=== PATIENT | male | born 1960 | race Caucasian/White ===

== ENCOUNTER 2019-09-14 20:49 | Inpatient (IN) | payer MEDICARE, SELFPAY ==
[2019-09-14 21:03] VITALS: BMI 23.7
[2019-09-14 21:09] VITALS: BP 171/109; PULSE 120; RESP 18; O2SAT 95
--- NOTE | 2019-09-14 21:12 | ED_ITS ---
Entered by Chanel Hanson, acting as scribe for Sep 14, 2019 20:49 HPI - Psych General: Chief Complaint: Psychiatric Symptoms Stated Complaint: AMS Time Seen by Provider: 09/14/19 21:07 Source: patient Mode of arrival: EMS Limitations: no limitations History of Present Illness: HPI Narrative: 59 yo Male presents to ED with complaint of psychiatric symptoms. Pt states that he would like to talk to a automatic pinsetter mechanic because it is his rights. Pt states that he has chest pain and his knuckels are chapped again. Pt states that he has trouble breathing but it doesn't matter because he has been in pain forever. Pt states that he has chronic pain that he was dealing with with Dr. Reveles. Pt states that he would rather speak to a automatic pinsetter mechanic before he says anything. MD complaint: other Relieving factors: none Exacerbating factors: none Review of Systems General: Reports: 10 or more systems reviewed and unremarkable except in HPI and below Const: Denies: fever, chills or body aches Eyes: Denies: change in vision, blurry vision or blind spots ENMT: Denies: throat pain, enlarged tonsils, painful swallowing, hoarseness, mouth pain or swelling of lips/tongue Card: Reports: chest pain; Denies: palpitations, irregular heart rhythm, edema or swelling of feet/ankles Resp: Denies: shortness of breath, productive cough or non-productive cough GI: Denies: abdominal pain, nausea or vomiting : Denies: flank pain, painful urination, urinary frequency, urinary urgency or urinary hesitancy Musc: Reports: back pain (chronic); Denies: neck pain, extremity pain, extremity swelling or joint pain Skin/Breast: Denies: rash, itching or redness Neuro: Denies: headache, numbness in extremities or weakness in extremities Endo: Denies: excessive urination, excessive thirst or tired all the time PFSH ED PFSH: Statuses (acute, chronic, etc) shown below reflect problem list status as previously entered and may not be historically accurate Social History (Updated 09/14/19 @ 21:23 by Chanel Hanson) Smoking and tobacco status: current every day smoker Alcohol intake: current Substance/Drug Use: current Substance/Drug use type: Marijuana Physical Exam Const: COMMON NORMALS: no apparent distress, average body habitus, oriented x3, no limitations, healthy appearing, alert and well nourished HENMT: COMMON NORMALS: normocephalic, head/scalp atraumatic and moist oral mucous membranes HEAD & SCALP: normocephalic and atraumatic Eye: COMMON NORMALS: PERRL, EOMs intact bilaterally, conjunctivae normal and no scleral icterus CONJUNCTIVA: Yes conjunctivae normal PUPIL: Yes PERRL Neck/C-Spine: COMMON NORMALS: full ROM, supple, no meningeal signs, no JVD and no carotid bruits Chest: COMMONS NORMALS: inspection of chest normal and palpation of chest normal Resp: COMMON NORMALS: normal respiratory effort, no retractions, no use of accessory muscles, clear to auscultation bilaterally and percussion normal AUSCULTATION: clear to auscultation bilaterally PERCUSSION: percussion normal Cardio: COMMON NORMALS: no JVD, regular rate, regular rhythm, S1 normal heart sound, S2 normal heart sound, no gallops, no clicks, no murmurs, no rub and peripheral pulses 2+ throughout RATE: regular rate RHYTHM: regular rhythm HEART SOUNDS: S1 normal and S2 normal PERIPHERAL PULSES: pulses 2+ throughout GI: COMMON NORMALS: normal to inspection, nondistended, normoactive bowel sounds, soft to palpation, non-tender, no hepatosplenomegaly, no masses and no bruits PALPATION: Yes soft and Yes no hepatosplenomegaly : COMMON NORMALS: Yes no CVA tenderness BLADDER/KIDNEY EXAM: Yes no CVA tenderness Back/Pelvis: COMMON NORMALS: no CVA tenderness Extremity: COMMON NORMALS: normal to inspection, full ROM, normal capillary refill, no calf tenderness and no pedal edema Neuro: COMMON NORMALS: oriented x3 SENSORIUM/ORIENTATION: Yes alert MENINGEAL SIGNS: Yes no meningeal signs Skin: COMMON NORMALS: no rashes or lesions noted, no wounds, skin turgor normal, no jaundice, no petechiae and no mottling GENERAL SKIN EXAM: no rashes or lesions noted and turgor normal MDM - Psych MDM Narrative: Medical decision making narrative: Patient with symptoms of acute psychosis. He is medically cleared and is admitted to the neuropsychiatric unit for further evaluation and management. Lab Data: Labs: Lab Results 09/14/19 09/14/19 09/14/19 Range/Units 21:48 21:48 22:45 WBC 12.5 H (4.0-10.0) 10^3/ uL RBC 4.64 (4.1-5.3) 10^6/u L Hgb 13.1 (11.7-16.6) g/dL Hct 40.2 L (42.0-52.0) % MCV 86.6 (80-94) fL MCH 28.2 (28.0-34.0) pg MCHC 32.6 (30.0-36.0) g/dL RDW 14.9 (12.1-15.1) % Plt Count 570 H (130-400) 10^3/c mm MPV 9.0 (7.4-10.4) fL Neut % (Auto) 78.9 % Lymph % (Auto) 12.2 % Obion % (Auto) 8.4 % Eos % (Auto) 0.0 % Baso % (Auto) 0.2 % Neut # (Auto) 9.8 H (1.8-7.7) 10^3/u L Lymph # (Auto) 1.5 (0.8-4.8) 10^3/u L Obion # (Auto) 1.1 H (0.2-0.9) 10^3/u L Eos # (Auto) 0.0 (0.0-0.8) 10^3/u L Baso # (Auto) 0.0 (0.0-0.1) 10^3/u L Nucleated RBC % (a uto) 0 % Nucleated RBCs # 0.0 /100WBC Sodium 141 (136-145) mmol/L Potassium 3.2 L (3.5-5.1) mmol/L Chloride 102 (98-107) mmol/L Carbon Dioxide 24 (22-29) mmol/L Anion Gap 18.2 (5-19) BUN 13 (6-20) mg/dL Creatinine 1.0 (0.7-1.2) mg/dL GFR Calculation 76.5 L (90-130) mL/min Glucose 119 H (74-109) mg/dL Calcium 10.2 H (8.6-10.0) mg/Dl Total Bilirubin 0.4 (0.15-1.2) mg/dL AST 45 H (0-40) U/L ALT 17 (0-41) U/L Alkaline Phosphata se 131 H (40-130) IU/L Total Protein 7.6 (6.6-8.7) g/dL Albumin 4.7 (3.5-5.2) g/dL Globulin 2.9 (1.3-4.6) g/dL TSH 1.97 (0.27-4.20) uIU/ mL Urine Color (Yellow) Urine Appearance (CLEAR) Urine pH (5-7) Ur Specific Gravit y (1.005-1.030) Urine Protein (Negative) Urine Glucose (UA) (Normal) Urine Ketones (Negative) Urine Occult Blood (Negative) Urine Nitrate (Negative) Urine Bilirubin (NEGATIVE) Urine Urobilinogen (Negative) mg/dL Ur Leukocyte Chinyere ase (Negative) Urine RBC (0-2) /hpf Urine WBC (0-5) /hpf Ur Squamous Epith Cells (0-5) Urine Bacteria (NONE) Hyaline Casts Coarse Granular Ca sts /lpf Urine Mucus Salicylates < 0.3 L (3-10) mg/dL Urine Opiates Scre en Positve (Negative) ng/mL Acetaminophen < 5.0 L (10-30) ug/mL Ur Barbiturates Sc reen Negative (Negative) ng/mL Ur Phencyclidine S crn Negative (Negative) ng/mL Ur Amphetamines Sc reen Negative (Negative) ng/mL U Benzodiazepines Scrn Positive H (Negative) ng/mL Urine Cocaine Scre en Negative (Negative) ng/mL U Marijuana (THC) Screen Positive H (Negative) ng/mL Ethyl Alcohol < 10 (0-10) mg/dL 09/14/19 Range/Units 22:45 WBC (4.0-10.0) 10^3/ uL RBC (4.1-5.3) 10^6/u L Hgb (11.7-16.6) g/dL Hct (42.0-52.0) % MCV (80-94) fL MCH (28.0-34.0) pg MCHC (30.0-36.0) g/dL RDW (12.1-15.1) % Plt Count (130-400) 10^3/c mm MPV (7.4-10.4) fL Neut % (Auto) % Lymph % (Auto) % Obion % (Auto) % Eos % (Auto) % Baso % (Auto) % Neut # (Auto) (1.8-7.7) 10^3/u L Lymph # (Auto) (0.8-4.8) 10^3/u L Obion # (Auto) (0.2-0.9) 10^3/u L Eos # (Auto) (0.0-0.8) 10^3/u L Baso # (Auto) (0.0-0.1) 10^3/u L Nucleated RBC % (a uto) % Nucleated RBCs # /100WBC Sodium (136-145) mmol/L Potassium (3.5-5.1) mmol/L Chloride (98-107) mmol/L Carbon Dioxide (22-29) mmol/L Anion Gap (5-19) BUN (6-20) mg/dL Creatinine (0.7-1.2) mg/dL GFR Calculation (90-130) mL/min Glucose (74-109) mg/dL Calcium (8.6-10.0) mg/Dl Total Bilirubin (0.15-1.2) mg/dL AST (0-40) U/L ALT (0-41) U/L Alkaline Phosphata se (40-130) IU/L Total Protein (6.6-8.7) g/dL Albumin (3.5-5.2) g/dL Globulin (1.3-4.6) g/dL TSH (0.27-4.20) uIU/ mL Urine Color Yellow (Yellow) Urine Appearance Cloudy (CLEAR) Urine pH 5 (5-7) Ur Specific Gravit y 1.025 (1.005-1.030) Urine Protein 1+ H (Negative) Urine Glucose (UA) Norm (Normal) Urine Ketones 1+ H (Negative) Urine Occult Blood 2+ H (Negative) Urine Nitrate Negative (Negative) Urine Bilirubin 1+ H (NEGATIVE) Urine Urobilinogen 1 H (Negative) mg/dL Ur Leukocyte Chinyere ase 2+ H (Negative) Urine RBC 0-4 H (0-2) /hpf Urine WBC 15-25 H (0-5) /hpf Ur Squamous Epith Cells None (0-5) Urine Bacteria 1+ H (NONE) Hyaline Casts 5-10 H Coarse Granular Ca sts 0-4 H /lpf Urine Mucus 2+ Salicylates (3-10) mg/dL Urine Opiates Scre en (Negative) ng/mL Acetaminophen (10-30) ug/mL Ur Barbiturates Sc reen (Negative) ng/mL Ur Phencyclidine S crn (Negative) ng/mL Ur Amphetamines Sc reen (Negative) ng/mL U Benzodiazepines Scrn (Negative) ng/mL Urine Cocaine Scre en (Negative) ng/mL U Marijuana (THC) Screen (Negative) ng/mL Ethyl Alcohol (0-10) mg/dL Discharge Plan Discharge Patient Disposition: Admitted As Inpatient Clinical Impression: Acute psychosis Condition: Stable Referrals: Magdalena Reveles DO [Primary Care Provider] - Coding Level of Care Code ED Hearing Health Technician for Chg Fwd Exam Problem Focused The documentation recorded by the Margie gomez Carmen, accurately reflects the service I personally performed and the decisions made by me, Cynthia Cole MD, [place] Sep 14, 2019 20:49
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
[2019-09-14 22:10] LABS: Basophils % 0.2 %; Hematocrit 40.2 % (42.0-52.0); Hemoglobin 13.1 g/dL (11.7-16.6); Lymphocytes # 1.5 10^3/uL (0.8-4.8); Lymphocytes % 12.2 %; Mean Corpuscular HGB Conc 32.6 g/dL (30.0-36.0); Mean Corpuscular Hemoglobin 28.2 pg (28.0-34.0); Mean Corpuscular Volume 86.6 fL (80-94); Monocytes # 1.1 10^3/uL (0.2-0.9); Monocytes % 8.4 %; Neutrophils # 9.8 10^3/uL (1.8-7.7); Neutrophils % 78.9 %; Nucleated Red Blood Cells % 0 %; Platelet Count 570 10^3/cmm (130-400); Red Blood Count 4.64 10^6/uL (4.1-5.3); Red Cell Distribution Width 14.9 % (12.1-15.1); White Blood Count 12.5 10^3/uL (4.0-10.0)
[2019-09-14 22:41] LABS: Alanine Aminotransferase 17 U/L (0-41); Albumin Level 4.7 g/dL (3.5-5.2); Alkaline Phosphatase 131 IU/L (40-130); Anion Gap 18.2 (5-19); Aspartate Amino Transferase 45 U/L (0-40); Blood Urea Nitrogen 13 mg/dL (6-20); Calcium 10.2 mg/Dl (8.6-10.0); Carbon Dioxide 24 mmol/L (22-29); Chloride 102 mmol/L (98-107); Globulin 2.9 g/dL (1.3-4.6); Glomerular Filtration Rate 76.5 mL/min (90-130); Glucose 119 mg/dL (74-109); Potassium 3.2 mmol/L (3.5-5.1); Sodium 141 mmol/L (136-145); Thyroid Stimulating Hormone 1.97 uIU/mL (0.27-4.20); Total Bilirubin 0.4 mg/dL (0.15-1.2); Total Protein 7.6 g/dL (6.6-8.7)
[2019-09-14] MEDS: HYDROcodone-acetaminophen 5-325 mg Tablet 1 TAB PO (22:52)
[2019-09-14 22:53] LABS: Acetaminophen < 5.0 ug/mL (10-30); Alcohol Level < 10 mg/dL (0-10); Salicylate < 0.3 mg/dL (3-10)
[2019-09-14 22:55] VITALS: BP 178/117; PULSE 99; RESP 16; O2SAT 98
[2019-09-14 23:01] LABS: Blood Urine 2+ (Negative); Glucose Urine UA Norm (Normal); Ketones Urine 1+ (Negative); Protein Urine 1+ (Negative); Specific Gravity, Urine 1.025 (1.005-1.030); Urine Appearance Cloudy (CLEAR); Urine Color Yellow (Yellow); pH Urine 5 (5-7)
[2019-09-14 23:02] LABS: Add Urine Culture? Yes; Add Urine Microscopic? YES; Bacteria Urine 1+; Bilirubin Urine 1+ (NEGATIVE); Coarse Granular Casts Urine 0-4 /lpf; Leukocyte Esterase Urine 2+ (Negative); Mucus Urine 2+; Nitrate Urine Negative (Negative); RBC Urine 0-4 /hpf (0-2); Urobilinogen Urine 1 mg/dL (Negative); WBC Urine 15-25 /hpf (0-5)
--- NOTE | 2019-09-14 23:09 | PC.NURSE ---
Patient has severe dental caries and is asking for assistance. Patient reports that he has attempted to follow up with dentistry but has not been successful.
[2019-09-14 23:17] LABS: Amphetamines Screen Urine Negative (Negative); Barbiturates Screen Urine Negative (Negative); Benzodiazepines Screen Urine Positive (Negative); Cocaine Screen Urine Negative (Negative); PCP Screen Urine Negative (Negative); THC Screen Urine Positive (Negative)
[2019-09-14] MEDS: metoprolol tartrate 50 mg Tablet PO (23:35)
[2019-09-14 23:51] VITALS: BP 165/80; PULSE 99; RESP 16; O2SAT 98
[2019-09-15 00:58] VITALS: BP 170/108; PULSE 78; RESP 16; TEMP 36.8; O2SAT 99
[2019-09-15 05:27] VITALS: BP 193/92; PULSE 90; RESP 17; TEMP 36.8; O2SAT 97
--- NOTE | 2019-09-15 07:54 | PM.NHP ---
Providers/Chief Complaint Admitting Physician: Vel Cintron MD Primary Care Provider: Magdalena Reveles DO Chief Complaint: ACUTE PSYCHOSIS, 96 HR HOLD HPI NPU History of Present Illness Jose Alfredo Page is a 59 year old male Chief complaint: We are at [facility] in [facility]. We are in an office building. But not 1 of the Good ones. We are in the 1 with the [employer].. I'm 70 years old And I have a 5-year-old daughter. We had her when I was 26. History of present illness: Jose Alfredo Page is a 59 year old male. At seems to be true. Otherwise, is not real clear how he wound up on a psychiatric unit. Emergency room note displayed below. He has no prior psychiatric history. He does not know these in the psychiatric unit. Begin figure why he would be a psychiatric unit. He admits that he smokes marijuana but says that doesn't seem to be a problem as he been doing it every day since he was 6 years old. The patient is not a reliable source of information. It is noted that he has an untreated urinary tract infection and his white count is elevated. His urine drug screen is positive for marijuana and benzodiazepines. Laboratory Tests 09/14/19 09/14/19 09/14/19 21:48 21:48 22:45 WBC 12.5 H Plt Count 570 H Urine Bilirubin Urine Urobilinogen Ur Leukocyte Esterase Urine RBC Urine WBC Urine Bacteria Urine Opiates Screen Positve Ur Barbiturates Screen Negative Ur Phencyclidine Scrn Negative Ur Amphetamines Screen Negative U Benzodiazepines Scrn Positive H Urine Cocaine Screen Negative U Marijuana (THC) Screen Positive H Ethyl Alcohol < 10 09/14/19 22:45 WBC Plt Count Urine Bilirubin 1+ H Urine Urobilinogen 1 H Ur Leukocyte Esterase 2+ H Urine RBC 0-4 H Urine WBC 15-25 H Urine Bacteria 1+ H Urine Opiates Screen Ur Barbiturates Screen Ur Phencyclidine Scrn Ur Amphetamines Screen U Benzodiazepines Scrn Urine Cocaine Screen U Marijuana (THC) Screen Ethyl Alcohol He has no complaints today. He apologized for losing his temper at me this morning. It is 1530 and this is the first time that I met him. He makes no requests. 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 We cannot confirm any of that. At this point we have many more questions and redo answers. However even without corroborating evidence, it is clear that he is oriented only to self and his memory is globally impaired. ER physician note: HPI Narrative: 59 yo Male presents to ED with complaint of psychiatric symptoms. Pt states that he would like to talk to a residential electrician because it is his rights. Pt states that he has chest pain and his knuckels are chapped again. Pt states that he has trouble breathing but it doesn't matter because he has been in pain forever. Pt states that he has chronic pain that he was dealing with with Dr. Reveles. Pt states that he would rather speak to a residential electrician before he says anything. Mental health history:There is no history of mental health intervention his [facility] chart extending back several years. Patient states he has never seen a psychiatrist or been on a psychiatric unit. 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 Gives that appearance in that general demeanor. He references the quite a bit but is unable to state whether he was in the . At various times he said that he gruff, [place], [place]. Legal history:There is no [place] public record of arrest for Felonies or incarcerations. Past medical history:Resiliency record is back to 2006. History of psychiatric intervention of any kind. He has had considerable cardiovascular difficulties and he says that he has had a stroke. However his only hospitalization was for an appendectomy In 2015.This should be noted that I'm unable to find documentation for the vast number of medical presentations in the old electronic medical record. Mental Status Exam: Patient is a tall lanky man with an unshaven sun and disheveled appearance though with good hygiene. He appears older than stated age. He is ambulatory and there are no gross neurological deficits. There are no focal neurological deficits consistent with a recent stroke. I contact is good. There is no attention to internal stimuli. He is believed to be a reliable informant to the best of his ability. Appearance: hygiene is fair; no gross neurological deficits., gait is unremarkable; AIMS=0 Speech: Speech is of normal rate and rhythm and easily understood. Thought processes: Thought processes are Disorganized. Judgment is not adequate for safety. Psychotic processes: There is no indication of guarding or paranoia. There is no attention to the internal stimuli. Auditory and visual hallucinations are denied. Judgment: Insight is Poor. Problem solving skills are Notadequate for safety. Orientation: The patient is oriented to Himself only. Memory: His description of personal memory is so bizarreness to be unable to corroborate it against available evidence but it appears that his self-report of memory is completely invalid. Attention: The patient is alert and interpersonally engaged. Language: Verbalizations are coherent. Fund of knowledge: Fund of knowledge is Poor Affect/Mood: Affect is consistent with a Euthymic mood. He denied suicidal ideation Affective range appropriate. Psychosis: Perception is severely impaired reality testing is negligible given his degree of disorientation and lack of awareness. Diagnoses:Delirium?etiology unknown Urinary tract infection Recent marijuana use with known contaminated marijuana leading to delirium in the community. Assessment: Treatment plan: Due to the psychiatric conditions and treatment listed in the Assessment and Plan - the patient requires continued hospitalization. Will provide a safe and therapeutic environment for patient.. Will continue inpatient treatment to allow for medication adjustment and monitoring. Will continue q15 min safety checks. Will continue current medications and monitor for medication side effects. Bactrim DS has been initiated for urinary tract infection.Routine CT of the head will be requested. Monitor patient's mood, sleep, appetite, and behavior closely. Encourage patient to participate in individual and group therapeutic sessions on the mc. Estimated length of stay 5 days The expected benefits and potential side effects of patient's psychiatric medications were discussed with the patient. The patient understands and consents to treatment.CRITERIA FOR DISCHARGE: stable on medications and no longer an Imminent risk to self or others. Meds NPU Allergies Allergy/AdvReac Type Severity Reaction Status Date / Time No Known Allergies Allergy Verified 09/14/19 21:08 PFSH NPU PFSH: Statuses (acute, chronic, etc) shown below reflect problem list status as previously entered and may not be historically accurate Social History (Updated 09/14/19 @ 21:23 by Chanel Hanson) Smoking and tobacco status: current every day smoker Alcohol intake: current Substance/Drug Use: current Substance/Drug use type: Marijuana Vitals/I&O/Wt Last Vital Signs Temp 98.3 F 09/15/19 05:27 Pulse 90 09/15/19 05:27 Resp 17 09/15/19 05:27 BP 193/92 01/23/20 05:27 Pulse Ox 97 09/15/19 05:27 Weight last 48 hrs Weight 81.647 kg Data NPU : 09/14/19 21:48 09/14/19 21:48 Involuntary Hold Information 96 Hour Hold: 96 Hour Involuntary Admission: Yes 96 Hour Hold Ending Date: 09/20/19 96 Hour Hold Ending Time: 23:26 Attestations NPU Medical Necessity Statement*: Pacer remain in the hospital another 5 nights for the completion of an is 96 hour involuntary commitment. 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
[2019-09-15] MEDS: sulfamethoxazole-trimeth DS 160-800 mg Tablet 1 TAB PO ×2 (10:45→17:42)
[2019-09-15] MEDS: hyDROXYzine 25 mg Capsule 50 MG PO (10:45)
[2019-09-15 14:00] VITALS: BP 163/88; PULSE 99; RESP 20; TEMP 37.2; O2SAT 100
[2019-09-15] MEDS: OLANZapine 5 mg TABLET PO (21:25)
[2019-09-15] MEDS: trazodone 50 mg Tablet PO (21:27)
[2019-09-15 21:31] VITALS: BP 166/95; PULSE 98; RESP 21; TEMP 36.8; O2SAT 98
[2019-09-16] MEDS: LORazepam 1 mg Tablet PO (01:16)
--- NOTE | 2019-09-16 01:23 | PC.NURSE ---
At approximately 0104, patient had been at the nurses station. Appeared to be mumbling and then went down to his knees, which appeared to be on purpose, then pt. rolled over on his back on the floor out by the nurses station. Video was reviewed and it was intentional. Patient had a breakdown and was tearful, remembering events from his past. Patient spoke of his and past events and was eventually able to calm down after talking with staff. Patient was agreeable to take prn ativan 1 mg Po at 0116, and tolerated well. Vital signs were 145/87. Patient was assisted to his room and is currently resting in bed with eyes closed. Will re-assess effectiveness of PRN medication and continue to monitor.
--- NOTE | 2019-09-16 02:00 | PC.NURSE ---
Patient is in bed, but remains awake. Patient is not tearful at this time and appears a little calmer at this time.
[2019-09-16] MEDS: OLANZapine ODT 5 MG TABLET PO (04:46)
[2019-09-16] MEDS: haloperidol inj 5 mg/mL INJ 1 mL IM (04:53)
--- NOTE | 2019-09-16 04:56 | PC.NURSE ---
Addendum entered by Julian Birmingham LPN 09/16/19 05:41: PT CONTINUES TO BE HALLUCINATING AND AGITATED. AFTER SEVERAL ATTEMPTS TO VERBALLY REDIRECT PT; ADMINISTERED ATIVAN 2 MG IM. WILL CONTINUE TO MONITOR. Original Note: PRN HALDOL PT HALLUCINATING AND GETTING VERY AGITATED. PT WAS IN HIS ROOM TRYING TO PULL THE OUTLET COVER OFF THE WALL, PULLING UP HIS MATTRESS LOOKING FOR HIS SCREWDRIVER. HE THEN PROCEEDED TO TRY TO PULL HIS TEETH OUT. PT WAS GIVEN ZYPREXA ZYDIS BUT SPIT IT ON THE FLOOR. PT WAS THEN GIVEN HALDOL 5 MG IM. WILL MONITOR FOR MEDICATION EFFECTIVENESS.
[2019-09-16] MEDS: LORazepam 2 mg/mL INJ 1 mL IM (05:27)
--- NOTE | 2019-09-16 10:05 | PC.NURSE ---
PT NOTE: PATIENT UNABLE TO COMPREHEND TAKING MEDICATION (BACTRIM) THIS MORNING.
[2019-09-16 14:00] VITALS: BP 116/98; PULSE 99; RESP 19; TEMP 37; O2SAT 95
--- NOTE | 2019-09-16 15:26 | P.PN_ITS ---
Subjective NPU Subjective: Interval history: Patient continues to have a variety of minor complaints. Today he finally was complaining of pain and would like some relief with that. He points to various scars and sites of musculoskeletal trauma that he has had in the past. 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 He talked about his life history little bit as he did yesterday. He said that he her up in [facility]. He grew up in a good place where it was. He apparently did spend some time in psychiatric hospitals as a youth. He complained that he cannot focus his attention very well and his vision is such that he is seeing things that aren't there. He denies the presence of auditory and visual hallucinations but these things that he sees appear to be more like illusions. Mental Status Exam MSE Comments: Mental Status Exam: Patient is a tall lanky man with an unshaven sun and disheveled appearance though with good hygiene. He appears older than stated age. He is ambulatory and there are no gross neurological deficits. There are no focal neurological deficits consistent with a recent stroke. Eye contact is good. There is no attention to internal stimuli. He is believed to be a reliable informant to the best of his ability. Appearance: hygiene is fair; no gross neurological deficits., gait is unremarkable; AIMS=0 Speech: Speech is of normal rate and rhythm and easily understood. Thought processes: Thought processes are More organized than on admission but he continues to have difficulty focusing his attention long enough to maintain a train of thought.. Judgment is not adequate for safety But improved.. Psychotic processes: There is no indication of guarding or paranoia. There is no attention to the internal stimuli. Auditory and visual hallucinations are denied. Judgment: Insight is Improved. Problem solving skills are Not adequate for safety But improved over yesterday.. Orientation: The patient is oriented to Himself only. Memory: Long-term memories are more internally consistent. Attention: The patient is alert and interpersonally engaged. Language: Verbalizations are Difficult to follow and often demonstrate some flight of ideas noted significant that he is aware that he is not thinking taya chaz. Fund of knowledge: Fund of knowledge is Poor Affect/Mood: Affect is consistent with a Euthymic mood. He denied suicidal ideation Affective range appropriate. Psychosis: Perception is severely impaired reality testing is negligible given his degree of disorientation and lack of awareness. Diagnoses:Delirium?etiology unknown Urinary tract infection Recent marijuana use with known contaminated marijuana leading to delirium in the community. Assessment: Treatment plan: Due to the psychiatric conditions and treatment listed in the Assessment and Plan - the patient requires continued hospitalization. Will provide a safe and therapeutic environment for patient.. Will continue inpatient treatment to allow for medication adjustment and monitoring. Will continue q15 min safety checks. Will continue current medications and monitor for medication side effects. Bactrim DS has been initiated for urinary tract infection. Hospital day #3: The patient shows moderate improvement in mental status in that he has some awareness that he is not thinking clearly and that his problem solving and reality deficits appear to be more from his inability to focus attention and think in a linear fashion. His memory is more consistent and he shows some improvement in calculation which indicates improved problem solving skills. We have received his list of medications and will be restarting those of a modified form. Plan: Start oxycodone 10 mg 3 times a day rather than 30 mg 5 times daily that is listed on his record, Protonix 40 mg daily, Lipitor 40 mg daily, protriptyline will be replaced with doxepin 50 mg at bedtime. His lactulose and MiraLAX will not be restarted as those appear to be likely due to constipation from his high-dose of oxycodone it is not clear why he is taking doxycycline. Monitor patient's mood, sleep, appetite, and behavior closely. Encourage patient to participate in individual and group therapeutic sessions on the mc. Estimated length of stay 5 days The expected benefits and potential side effects of patient's psychiatric medications were discussed with the patient. The patient understands and consents to treatment.CRITERIA FOR DISCHARGE: stable on medications and no longer an Imminent risk to self or others. Vitals/I&O/Wt Last Vital Signs Temp 98.6 F 09/16/19 14:00 Pulse 99 09/16/19 14:00 Resp 19 H 09/16/19 14:00 BP 116/98 09/16/19 14:00 Pulse Ox 95 09/16/19 14:00 Weight last 48 hrs Weight 81.647 kg Data NPU : 09/14/19 21:48 09/14/19 21:48 Micro: Microbiology 09/14/19 22:45 Urine Culture - Preliminary Urine,Clean Catch Microbiology 09/14/19 22:45 Urine,Clean Catch Urine Culture - Preliminary Involuntary Hold Information 96 Hour Hold: 96 Hour Involuntary Admission: Yes 96 Hour Hold Ending Date: 09/20/19 96 Hour Hold Ending Time: 23:26 Attestations NPU Medical Necessity Statement*: Patient remains a hospital litter 3 nights until his mental status improves to where he is no longer an imminent risk to self or others. 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
[2019-09-16] MEDS: oxyCODONE 5 mg IR Tab/Cap PO (16:39)
[2019-09-16] MEDS: pantoprazole DR 40 mg Tablet PO (16:39)
[2019-09-16] MEDS: sulfamethoxazole-trimeth DS 160-800 mg Tablet 1 TAB PO (18:18)
[2019-09-16 18:19] VITALS: RESP 20
[2019-09-16] MEDS: oxyCODONE 10 mg ER (12 HR) Tablet PO (18:19)
[2019-09-16 21:03] VITALS: BP 145/96; PULSE 116; RESP 21; TEMP 37.2; O2SAT 95
[2019-09-16] MEDS: OLANZapine 5 mg TABLET PO (21:07)
[2019-09-16] MEDS: trazodone 50 mg Tablet PO (21:07)
[2019-09-16] MEDS: atorvastatin 40 mg Tablet PO (21:07)
[2019-09-16] MEDS: doxepin 50 mg Capsule PO (21:07)
--- NOTE | 2019-09-17 | PC.NURSE ---
Addendum entered by Julian Birmingham LPN 09/17/19 00:29: GEODON PT CONTINUED TO BECOME INCREASINGLY AGITATED AND CONFUSED. ADMINISTERED GEODON 20 MG IM. WILL MONITOR FOR MEDICATION EFFECTIVENESS. Original Note: BEHAVIOR PT HAS BEEN PACING UP AND DOWN THE HALLWAY. PT IS HARD TO REDIRECT AND GETTING VERY ARGUMENTATIVE. PT CONTINUES TO REQUEST COFFEE AND HITTING THE GLASS AT THE NURSES STATION. WILL CONTINUE TO MONITOR.
[2019-09-17] MEDS: ziprasidone 20 mg/mL SDV IM (00:28)
--- NOTE | 2019-09-17 02:51 | PC.NURSE ---
PRN ATIVAN/Haldol IM Patient continues to be uncooperative, walking halls, mumbling, overflowing sink, and came in leyva and put a wet hand towel with soap on the back of another patients neck, tried to take sitters water bottle that was sitting in the leyva. Will continue to monitor.
[2019-09-17] MEDS: haloperidol inj 5 mg/mL INJ 1 mL IM (02:59)
[2019-09-17] MEDS: LORazepam 2 mg/mL INJ 1 mL IM (03:00)
--- NOTE | 2019-09-17 03:01 | PC.NURSE ---
WILLIAM ATYAMILETH ATIVAN WOULD NOT SCAN IN OCT. MAKAYLA FROM PHARMACY REMOVED MEDICATION AND RE-ENTERED. MEDICATION STILL WOULD NOT SCAN, ATIVAN LOT - [id number] EXP- 03/24/[address] [facility] [id number] BAR CODE [id number] ATIVAN VERIFIED BY SECOND NURSE IKE CHARLES RN
--- NOTE | 2019-09-17 03:03 | PC.NURSE ---
Ativan would not scan Verified with Marisela Birmingham LPN that ativan would not scan, she spoke with pharmacy Pedro and he re-entered medication and it would still not scan.
[2019-09-17 05:58] VITALS: BP 126/77; PULSE 81; RESP 20; TEMP 36.5; O2SAT 97
--- NOTE | 2019-09-17 05:58 | PC.NURSE ---
FAll report Patient had been confused and went into hallway and was attempting to touch staff with a wet cloth. She was backing away from him and he raised the other hand toward her face and she blocked it. Patient then tripped over his foot and went to the ground with minimal impact to buttock area. Assisted off the floor and moved to a room with less stimulation and pt has remained calm and in bed since. supervisor machine setter, physician, security all notified. Green band and socks applied. Security, Apartment Leasing Agent and physician notified. Green band and socks applied. Patient resting in bed, no needs voiced.
[2019-09-17] MEDS: pantoprazole DR 40 mg Tablet PO (10:16)
[2019-09-17] MEDS: oxyCODONE 10 mg ER (12 HR) Tablet PO ×2 (10:16→17:27)
[2019-09-17] MEDS: sulfamethoxazole-trimeth DS 160-800 mg Tablet 1 TAB PO ×2 (10:16→17:27)
--- NOTE | 2019-09-17 11:43 | PM.NPN ---
Subjective NPU Subjective: Interval history: Patient States that he believes is between 1964 and 1979 but is not sure. He thinks it is February. He believes he is in [facility]. He perseverates on events as a child. When asked how old he was, he first said 14 and then he changed his mind is being 16. 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 He told me that the first thing you do we build a house is a build a foundation. Has no complaints. He does not recall not sleeping last night. Mental Status Exam MSE Comments: Mental Status Exam: Patient is a tall lanky man with an unshaven sun and disheveled appearance though with good hygiene. He appears older than stated age. He is ambulatory and there are no gross neurological deficits. There are no focal neurological deficits consistent with a recent stroke. Eye contact is good. There is no attention to internal stimuli. He is believed to be a reliable informant to the best of his ability. Appearance: hygiene is fair; no gross neurological deficits., gait is unremarkable; AIMS=0 Speech: Speech is of normal rate and rhythm and easily understood. Thought processes: Thought processes are More organized than on admission but he continues to have difficulty focusing his attention long enough to maintain a train of thought.. Judgment is not adequate for safety But improved.. Psychotic processes: There is no indication of guarding or paranoia. There is no attention to the internal stimuli. Auditory and visual hallucinations are denied. Judgment: Insight is Improved. Problem solving skills are Not adequate for safety But improved over yesterday.. Orientation: The patient is oriented to Himself only. Memory: Long-term memories are more internally consistent. Attention: The patient is alert and interpersonally engaged. Language: Verbalizations are Difficult to follow and often demonstrate some flight of ideas noted significant that he is aware that he is not thinking clearly. Fund of knowledge: Fund of knowledge is Poor Affect/Mood: Affect is consistent with a Euthymic mood. He denied suicidal ideation Affective range appropriate. Psychosis: Perception is severely impaired reality testing is negligible given his degree of disorientation and lack of awareness. Diagnoses:Delirium?etiology unknown Urinary tract infection Recent marijuana use with known contaminated marijuana leading to delirium in the community. Assessment: Treatment plan: Due to the psychiatric conditions and treatment listed in the Assessment and Plan - the patient requires continued hospitalization. Will provide a safe and therapeutic environment for patient.. Will continue inpatient treatment to allow for medication adjustment and monitoring. Will continue q15 min safety checks. Will continue current medications and monitor for medication side effects. Bactrim DS has been initiated for urinary tract infection. Hospital day #3: The patient shows moderate improvement in mental status in that he has some awareness that he is not thinking clearly and that his problem solving and reality deficits appear to be more from his inability to focus attention and think in a linear fashion. His memory is more consistent and he shows some improvement in calculation which indicates improved problem solving skills. We have received his list of medications and will be restarting those of a modified form. Plan: Start oxycodone 10 mg 3 times a day rather than 30 mg 5 times daily that is listed on his record, Protonix 40 mg daily, Lipitor 40 mg daily, protriptyline will be replaced with doxepin 50 mg at bedtime. His lactulose and MiraLAX will not be restarted as those appear to be likely due to constipation from his high-dose of oxycodone it is not clear why he is taking doxycycline. Hospital day #4: Patient was up all night last night and requires when necessary Geodon. It did not provide significant benefit in improving sleep was less agitated throughout the night. Plan: We'll request a head CT noted is not expected to show anything significant. Will start Valium 10 mg at bedtime along side the olanzapine and doxepin to try and establish regular diurnal cycle. Monitor patient's mood, sleep, appetite, and behavior closely. Encourage patient to participate in individual and group therapeutic sessions on the mc. Estimated length of stay 5 days The expected benefits and potential side effects of patient's psychiatric medications were discussed with the patient. The patient understands and consents to treatment.CRITERIA FOR DISCHARGE: stable on medications and no longer an Imminent risk to self or others. Cognition: Patient Appearance: Appears Older than Age Level of Consciousness: Alert and Follows Commands Patient Cognition Impaired: No Ability to Follow Directions: Good Patient Orientation (long list): Person and Birthday Comprehension Ability: Mild Impairment Hallucination Type: None Delusion Description: Not Present Thought Process: Confused and Disorganized Affect: Affect Description: [place] Depressive Symptoms: Insomnia Behavior: Patient Behavior: Appropriate Speech Pattern: Mumbled Vitals/I&O/Wt Last Vital Signs Temp 97.7 F 09/17/19 05:58 Pulse 81 09/17/19 05:58 Resp 20 H 09/17/19 05:58 BP 126/77 09/17/19 05:58 Pulse Ox 97 09/17/19 05:58 Data NPU : 09/14/19 21:48 09/14/19 21:48 Micro: Microbiology 09/14/19 22:45 Urine Culture - Preliminary Urine,Clean Catch Microbiology 09/14/19 22:45 Urine,Clean Catch Urine Culture - Preliminary Involuntary Hold Information 96 Hour Hold: 96 Hour Involuntary Admission: Yes 96 Hour Hold Ending Date: 09/20/19 96 Hour Hold Ending Time: 23:26 Attestations NPU Medical Necessity Statement*: Patient will remain in the hospital another 5 days until we can figure out why this man is delirious 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
--- NOTE | 2019-09-17 12:16 | CTR_ITS ---
PROCEDURE INFORMATION: Exam: CT Head Without Contrast Exam date and time: 09/17/2019 1:45 PM Age: 59 years old Clinical indication: Psychosis or psychotic disorder; Unspecified; Patient HX: 96 hour hold. Onset of psychosis; Additional info: New onset psychosis TECHNIQUE: Imaging protocol: Computed tomography of the head without contrast. Total DLP: 649.64 mGy-cm Radiation optimization: All CT scans at this facility use at least one of these dose optimization techniques: automated exposure control; mA and/or kV adjustment per patient size (includes targeted exams where dose is matched to clinical indication); or iterative reconstruction. COMPARISON: No relevant prior studies available. FINDINGS: Brain: Mild brain volume loss. There is no acute intracranial hemorrhage. No extra-axial fluid collection. No evidence of acute infarct. Dowell white differentiation is intact. There is no evidence of mass. There is no mass effect or midline shift. Ventricles: No ventriculomegaly. Bones/joints: No acute fracture. Sinuses: Unremarkable as visualized. No acute sinusitis. Mastoid air cells: No significant mastoid effusion. Soft tissues: Unremarkable as visualized. CT/CT head wo con* [id number] IMPRESSION: No evidence of acute intracranial abnormality. Radiation Dose CTDIVOL = (mGy): DLP = 649.64 (mGy-cm)
[2019-09-17 14:00] VITALS: BP 129/69; PULSE 85; RESP 18; TEMP 36.8; O2SAT 97
[2019-09-17] MEDS: acetaminophen 325 mg Tablet 650 MG PO (16:00)
[2019-09-17] MEDS: diazePAM 5 mg Tablet 10 MG PO (21:27)
[2019-09-17] MEDS: atorvastatin 40 mg Tablet PO (21:27)
[2019-09-17] MEDS: doxepin 50 mg Capsule PO (21:27)
[2019-09-17 21:39] VITALS: BP 156/92; PULSE 112; RESP 21; TEMP 37.1; O2SAT 97
[2019-09-18] MEDS: haloperidol inj 5 mg/mL INJ 1 mL IM (00:45)
[2019-09-18] MEDS: LORazepam 2 mg/mL INJ 1 mL IM (00:53)
--- NOTE | 2019-09-18 04:34 | PC.NURSE ---
0045 on 09/18/19 patient given Ativan 2 mg/Haldol 5mg IM for agitation. Will continue to monitor.
--- NOTE | 2019-09-18 04:49 | PC.NURSE ---
0053 09/18/19 Ativan 2 mg vial did not scan into MAR. Entered manually.
[2019-09-18 06:00] VITALS: BP 173/93; PULSE 100; RESP 20; TEMP 36.8; O2SAT 96
[2019-09-18] MEDS: oxyCODONE 10 mg ER (12 HR) Tablet PO ×2 (08:20→17:08)
[2019-09-18] MEDS: pantoprazole DR 40 mg Tablet PO (08:21)
[2019-09-18] MEDS: OLANZapine ODT 5 MG TABLET PO (08:21)
[2019-09-18] MEDS: sulfamethoxazole-trimeth DS 160-800 mg Tablet 1 TAB PO ×2 (08:21→17:08)
--- NOTE | 2019-09-18 08:21 | PC.NURSE ---
PT VOICES THAT HIS FRIEND SITTING BESIDE HIM IS ARGUING WITH HIM. HAS BEEN PACING IN THE [place] AND NOTED PT TALKING TO HIMSELF. SANDEEP ROMANO ADMINISTERED. WILL CONT TO MONITOR AND FOLLOW UP NEEDED.
--- NOTE | 2019-09-18 09:00 | PC.NURSE ---
PT CONTINUES TO BE PSYCHOTIC AND DELUSIONAL. DR OFF THE FLOOR AT PRESENT WILL MAKE HIM AWARE WHEN HE RETURNS.
[2019-09-18] MEDS: LORazepam 2 mg Tablet PO (09:54)
[2019-09-18] MEDS: haloperidol 5 mg Tablet PO (09:54)
--- NOTE | 2019-09-18 09:54 | PC.NURSE ---
DR RAMIREZ MADE AWARE THAT PT CONTINUES TO BE DELUSIONAL AND TALKING TO OTHERS THAT ARENT PRESENT. ONE TIME ORDER FOR ATIVAN 2 MG PO WITH HALDOL 5 MG PO. ADMINISTERED ORDERED. WILL CONT TO MONITOR AND FOLLOW UP NEEDED
--- NOTE | 2019-09-18 09:55 | PM.NPN ---
Subjective NPU Subjective: Interval history: Patient seems to have become less disoriented. He no longer believes he is in [facility], where he originated, but now recognizes he lives in [place] and can give me the street address and [place] where he resides. He is getting older; he thinks he is 22 years old. He is not agitated or assaultive but his thoughts appear to be racing and confused. Medications: Reviewed: Yes (Discussed his current pharmacotherapy with nursing staff. It would appear that he decrescendos to peaks of agitation, which sometimes require as needed pharmacologic intervention) Medication Review Details: I have asked the nursing staff to provide Haldol 5 mg IM with lorazepam 2 mg IM every 4 hours as needed to calm him down and to observe the response. This may not be the exact targeted pharmacotherapy that he needs. But it will help us refine our treatment. Mental Status Exam MSE Comments: The patient is mildly disheveled. He presents his stated age. Mood is clearly very anxious and confused. Affect is appropriate. He relates to the interviewer are very friendly and cooperative manner. His disorientation seems to be declining and that he now recognizes he is seen in [place]. He thinks he is older than he did yesterday, now 22. Thought processes are scattered and given to looseness of associations. I cannot discern true hallucinations or delusions. Cognitive functions are grossly impaired as regards orientation, capacity for reasoning, insight and judgment. I note that is a 96-hour hold well and on the but I sincerely doubt he will be anywhere close to the competency necessary to resume responsibility for his own wellbeing and we may well have to apply for a 21-day extension. Vitals/I&O/Wt Last Vital Signs Temp 98.2 F 09/18/19 06:00 Pulse 100 09/18/19 06:00 Resp 20 H 09/18/19 06:00 BP 173/93 09/18/19 06:00 Pulse Ox 96 09/18/19 06:00 Weight last 48 hrs Weight 167 lb 4 oz Physical Exam Narrative: EXAM NARRATIVE: On examination he appeared in good health and spirits. Vital signs as documented. Skin warm and dry and without overt rashes. Neck without JVD. Lungs clear. Heart exam notable for regular rhythm, normal sounds and absence of murmurs, rubs or gallops. Abdomen unremarkable and without evidence of organomegaly, masses, or abdominal aortic enlargement. Extremities nonedematous. Data NPU : 09/14/19 21:48 09/14/19 21:48 Micro: Microbiology 09/14/19 22:45 Urine Culture - Final Urine,Clean Catch Microbiology 09/14/19 22:45 Urine,Clean Catch Urine Culture - Final A&P Assessment and plan (1) Acute psychosis: The patient's psychotic symptoms are waning. We are adjusting pharmacotherapy to establish dominance over them. We will closely monitor his progress. Status: Acute Code(s): F23 - Brief psychotic disorder Involuntary Hold Information 96 Hour Hold: 96 Hour Involuntary Admission: Yes 96 Hour Hold Ending Date: 09/20/19 96 Hour Hold Ending Time: 23:26 Attestations NPU Medical Necessity Statement*: Patient is persistently but decreasingly psychotic. His rate of improvement is that I anticipate the necessity to apply for a 21-day extension of his 96-hour hold. He remains grossly disoriented and his thought processes are utterly disrupted. I anticipate an additional 4-5 midnights stay. Time Spent in Patient Care: Greater than 35 minutes (>than 50% of time spent in counselling and/or direct pt care on unit). 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
[2019-09-18] MEDS: nicotine 21 mg Patch 1 PATCH TRANSDERMA (10:36)
[2019-09-18 13:06] VITALS: BP 160/83; PULSE 101; RESP 18; TEMP 36.7; O2SAT 98
[2019-09-18] MEDS: OLANZapine 5 mg TABLET 7.5 MG PO ×2 (15:09→22:34)
--- NOTE | 2019-09-18 15:09 | PC.NURSE ---
PT REMAINS DELUSIONAL. ADMINISTERED ZYPREXA 7.5 MG PO. WILL CONT TO MONITOR AND FOLLOW UP NEEDED
--- NOTE | 2019-09-18 16:20 | PC.NURSE ---
PT APPEARS LESS ANXIOUS BUT STILL REMAINS SLIGHTLY DELUSIONAL.WILL CONT TO MONITOR AND FOLLOW UP NEEDED.
[2019-09-18] MEDS: doxepin 50 mg Capsule PO (20:54)
[2019-09-18] MEDS: acetaminophen 325 mg Tablet 650 MG PO (20:54)
[2019-09-18] MEDS: atorvastatin 40 mg Tablet PO (20:55)
[2019-09-18 21:34] VITALS: BP 129/75; PULSE 92; RESP 16; TEMP 36.9; O2SAT 96
[2019-09-19] MEDS: haloperidol inj 5 mg/mL INJ 1 mL IM (01:05)
[2019-09-19] MEDS: LORazepam 2 mg/mL INJ 1 mL IM (01:35)
[2019-09-19] MEDS: ziprasidone 20 mg/mL SDV IM (04:05)
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
[2019-09-19 06:00] VITALS: BP 164/92; PULSE 76; RESP 17; O2SAT 100
--- NOTE | 2019-09-19 07:00 | PC.NURSE ---
PT REMAINS IN 4 POINT RESTRAINTS DUE TO UNPREDICTABLE BEHAVIOR. WHEN AMPOULE FILLER AND SEALER ASSESSED PT HE REMAINS DELUSIONAL AND RAMBLES ON ABOUT HIS AKIL AND ASKS WHERE SHE IS. ATTEMPTED TO REDIRECT AND VALADATE PT THAT HE WAS IN THE HOSPITAL IN THE NEUROPSYCH UNIT,BUT CONTINUES TO TALK ABOUT NEEDING TO HAVE SPINAL SURGERY. AND WHEN AMPOULE FILLER AND SEALER EXPLAINED PROCEDURE TO REMOVE RESTRAINTS,PT VOICES THAT HIS HOUSE IS BURNING DOWN AND I CANT COME AND LIVE THERE.WILL CONJT TO MONITOR AND FOLLOW UP NEEDED.
--- NOTE | 2019-09-19 07:06 | PC.NURSE ---
Patient refused temperature Jodie LYNCH
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
[2019-09-19] MEDS: oxyCODONE 10 mg ER (12 HR) Tablet PO ×2 (08:59→22:12)
[2019-09-19] MEDS: sulfamethoxazole-trimeth DS 160-800 mg Tablet 1 TAB PO (08:59)
[2019-09-19] MEDS: ziprasidone hcl 40 mg Capsule 80 MG PO (08:59)
[2019-09-19] MEDS: pantoprazole DR 40 mg Tablet PO (09:00)
--- NOTE | 2019-09-19 10:30 | PC.NURSE ---
SPEECH COMMUNICATION INSTRUCTOR WENT TO TALK WITH PATIENT AND EXPLAINED TO PATIENT THAT SPEECH COMMUNICATION INSTRUCTOR WANTED HIM TO BE SAFE WELL THE STAFF AND OTHER PATIENTS AND WOULD LIKE TO DISCONTINUE RESTRAINTS ON PATIENT AND HE VERBALIZED THAT HE UNDERSTOOD. SPEECH COMMUNICATION INSTRUCTOR RELEASED 4 POINT RESTRAINTS AT THIS TIME. PT WAS ASSISTED TO A SITTING POSITION AND ASSISTED TO HIS FT BY SPEECH COMMUNICATION INSTRUCTOR AND ANOTHER STAFF MEMBER AND NEW CLOTHING AND TOWELS FOR A SHOWER AND THIS PT WAS AGREEABLE WITH THIS. REMAINS 1:1 WITH MALE STAFF. SKIN W/D WITH NO NOTED INJURIES FROM RESTRAINTS.
[2019-09-19] MEDS: haloperidol 5 mg Tablet PO (11:22)
[2019-09-19] MEDS: LORazepam 2 mg Tablet PO (11:22)
--- NOTE | 2019-09-19 11:22 | PC.NURSE ---
PRN HALDOL AND PRN ATIVAN ATIVAN 2MG AND HALDOL 5MG PO FOR AGITATION/ANXIETY. PATIENT CONFUSED AND AGITATED. WILL CONTINUE TO MONITOR FOR MEDICATION EFFECTIVENESS.
[2019-09-19] MEDS: nicotine 21 mg Patch 1 PATCH TRANSDERMA (12:09)
--- NOTE | 2019-09-19 12:30 | PC.NURSE ---
PRN HALDOL AND ATIVAN FOLLOW UP MEDICATION EFFECTIVE. PT IS CONFUSED BUT CALM AND COOPERATIVE.
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
--- NOTE | 2019-09-19 18:40 | PC.NURSE ---
PT CURRENTLY IS SLEEPING IN BED. NO S/S OF DISTRESS. DR AWARE. ORDER TO CHANGE GEODON TO 80 MG PO DAILY. REMAINS ON 1:1 FOR SAFETY AND HX OF AGGRESSIVE BEHAVIOR.
[2019-09-19 21:02] VITALS: RESP 17
[2019-09-19] MEDS: atorvastatin 40 mg Tablet PO ×3 (22:08→22:11)
[2019-09-19 22:12] VITALS: RESP 16
[2019-09-19] MEDS: doxepin 50 mg Capsule PO (22:18)
--- NOTE | 2019-09-20 04:37 | PC.NURSE ---
has done well all night, slept well,, got up once and rediredted back to his room with 1-1 sitter.
[2019-09-20 06:00] VITALS: BP 139/94; PULSE 93; RESP 16; TEMP 36.8; O2SAT 98
[2019-09-20] MEDS: ziprasidone hcl 40 mg Capsule 80 MG PO (06:30)
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
[2019-09-20] MEDS: sulfamethoxazole-trimeth DS 160-800 mg Tablet 1 TAB PO ×2 (09:14→19:45)
[2019-09-20] MEDS: pantoprazole DR 40 mg Tablet PO (09:14)
[2019-09-20] MEDS: oxyCODONE 10 mg ER (12 HR) Tablet PO (09:15)
--- NOTE | 2019-09-20 09:38 | PC.SOCIAL ---
Hearin Day Hold court hearing scheduled for Saturday, September 21, 2019 at 3:00pm in the Probate Division of the [facility] of [facility] in [place], [place].
[2019-09-20] MEDS: ziprasidone hcl 40 mg Capsule PO (10:12)
[2019-09-20 14:00] VITALS: BP 127/71; PULSE 108; RESP 18; TEMP 37.2; O2SAT 97
[2019-09-20] MEDS: acetaminophen 325 mg Tablet 650 MG PO (16:48)
[2019-09-20] MEDS: doxepin 50 mg Capsule PO (21:22)
[2019-09-20 22:00] VITALS: BP 152/95; PULSE 89; RESP 20; TEMP 36.8; O2SAT 98
[2019-09-21 06:00] VITALS: BP 144/74; PULSE 88; RESP 20; TEMP 37.2; O2SAT 97
[2019-09-21] MEDS: ziprasidone hcl 40 mg Capsule PO (09:03)
[2019-09-21] MEDS: sulfamethoxazole-trimeth DS 160-800 mg Tablet 1 TAB PO ×2 (09:03→17:12)
[2019-09-21] MEDS: pantoprazole DR 40 mg Tablet PO (09:03)
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
[2019-09-21] MEDS: acetaminophen 325 mg Tablet 650 MG PO ×2 (10:31→21:21)
[2019-09-21 14:00] VITALS: BP 134/82; PULSE 84; RESP 16; TEMP 37.1; O2SAT 97
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
[2019-09-21] MEDS: doxepin 50 mg Capsule PO (20:43)
[2019-09-21 21:41] VITALS: BP 135/73; PULSE 93; RESP 18; TEMP 37.1; O2SAT 98
[2019-09-21] MEDS: ondansetron 4 MG Tablet PO (22:18)
[2019-09-22 05:56] VITALS: BP 156/94; PULSE 97; RESP 18; TEMP 37.1; O2SAT 95
[2019-09-22] MEDS: ziprasidone hcl 40 mg Capsule PO (06:04)
[2019-09-22] MEDS: sulfamethoxazole-trimeth DS 160-800 mg Tablet 1 TAB PO (08:20)
[2019-09-22] MEDS: pantoprazole DR 40 mg Tablet PO (08:20)
[2019-09-22] MEDS: acetaminophen 325 mg Tablet 650 MG PO ×3 (08:48→18:22)
[2019-09-22] MEDS: hyDROXYzine 25 mg Capsule 50 MG PO (12:34)
--- NOTE | 2019-09-22 12:34 | PC.NURSE ---
PRN VISTARIL 50 MG GIVEN PO PER C/O ANXIETY. WILL CONT TO MONITOR.
[2019-09-22 13:46] VITALS: BP 150/89; PULSE 95; RESP 18; TEMP 36.9; O2SAT 97
[2019-09-22] MEDS: nicotine 21 mg Patch 1 PATCH TRANSDERMA (14:08)
--- NOTE | 2019-09-22 14:43 | PC.NURSE ---
PRN VISTARIL EFFECTIVE NO FURTHER C/O ANXIETY. PT ABLE TO ATTEND GROUP THERAPY, MOOD IS PLEASANT
--- NOTE | 2019-09-22 15:40 | PM.NPN ---
Subjective NPU Subjective: Interval history: Jose Alfredo presents today reporting that he is made a huge improvement. He reports he was so psychotic when he got here and now with reduced to just some auditory visual hallucinations here there. He endorsed that he has a home that is a trailer that he lives in with his old lady. He reports he has not spoken with her but we both agreed is possible that he has does not recall given his level of delirium versus psychosis. He endorses that he took himself off all opiates fairly dramatically and worries that this was some kind of reaction to those major changes. We discussed trying to get some input on how close to baseline he is at this point and that we can begin the conversation about discharge in the next few days. Mental Status Exam MSE Comments: This is a slender white male with a very significant sun with adequate dress and eye contact. No abnormal movements. Cooperative with exam in no acute distress. Speech was normal rate and volume. Mood described as better affect congruent. Thought process organized. Thought content: Patient denied any suicidal or homicidal ideations, there were no delusions reported or noted, he endorsed mild auditory and visual hallucinations which are resolving. Attention and concentration appeared intact and memory appears more reliable but none were formally tested. He is alert and oriented ?3. Insight and judgment were fair. Vitals/I&O/Wt Last Vital Signs Temp 98.5 F 09/22/19 13:46 Pulse 95 09/22/19 13:46 Resp 18 09/22/19 13:46 BP 150/89 09/22/19 13:46 Pulse Ox 97 09/22/19 13:46 Data NPU : 09/14/19 21:48 09/14/19 21:48 A&P Additional A&P Information This is a 59-year-old white male who presented to the emergency room and ultimately was admitted to the neuro psych unit secondary to psychosis possibly related to recent withdrawal phenomenon who presents with profound improvement per staff after he had been continued on a 21-day-old due to lack of progress. 1. Continue current medication. 2. Continue individual, group and milieu therapy. 3. Continue every 15 minute checks for safety. 4. Work with social work team to determine discharge plan and we will evaluate for appropriateness for discharge over the next 48 hours. Involuntary Hold Information 96 Hour Hold: 96 Hour Involuntary Admission: Yes 96 Hour Hold Ending Date: 09/20/19 96 Hour Hold Ending Time: 23:26 21 Day Hold: 21 Day Hold Start Date: 09/21/19 21 Day Hold Start Time: 15:30 21 Day Hold End Date: 10/12/19 21 Day Hold End Time: 15:30 Attestations NPU Medical Necessity Statement*: Inpatient hospitalization is medically necessary and the clinically appropriate intervention at this time. We will monitor medications and titrate as indicated. We'll work to determine his nearness to baseline and readiness for discharge by reaching out to his [place] of family, friends and associates. Likely length of stay 1-3 days. 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
[2019-09-22 20:11] VITALS: BP 148/93; PULSE 93; RESP 16; TEMP 36.9; O2SAT 98
[2019-09-22] MEDS: doxepin 50 mg Capsule PO (20:52)
[2019-09-22] MEDS: atorvastatin 40 mg Tablet PO (20:52)
[2019-09-22] MEDS: trazodone 50 mg Tablet PO (23:38)
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
[2019-09-23] MEDS: OLANZapine 5 mg TABLET 7.5 MG PO (00:33)
--- NOTE | 2019-09-23 01:30 | PC.NURSE ---
Addendum entered by Julian Birmingham LPN 09/23/19 01:35: PRN MEDICATION EFFECTIVE. PT RESTING IN BED W/RESPIRATIONS EVEN AND UNLABORED. WILL CONTINUE TO MONITOR. Original Note: PRN ZYPREXA ZYPREXA ZYDIS 0033 PT GIVEN ZYPREXA ZYDIS 7.5 MG SUBLINGUAL FOR INCREASING HALLUCINATIONS, ANXIETY AND AGITATION. PT STATES THEY WERE COMING FOR HIM AND WE NEEDED TO TAKE COVER.WILL MONITOR FOR MEDICATION EFFECTIVENESS.
[2019-09-23] MEDS: acetaminophen 325 mg Tablet 650 MG PO ×2 (03:34→08:33)
[2019-09-23 06:00] VITALS: BP 149/85; PULSE 92; RESP 18; TEMP 36.9; O2SAT 98
[2019-09-23] MEDS: ziprasidone hcl 40 mg Capsule PO (06:48)
[2019-09-23] MEDS: nicotine 21 mg Patch 1 PATCH TRANSDERMA (08:33)
[2019-09-23] MEDS: pantoprazole DR 40 mg Tablet PO (08:33)
[2019-09-23] MEDS: metoprolol tartrate 50 mg Tablet PO ×2 (12:03→14:08)
--- NOTE | 2019-09-23 12:55 | PC.SOCIAL ---
Important Medicare Message Reviewed page 2 Important Medicare Message with patient, verbalized understanding, and signed page 2. Original to patient and copy to chart.
[2019-09-23] MEDS: dilTIAZem ER (24HR) 180 mg Capsule 360 MG PO (13:19)
[2019-09-23 14:00] VITALS: RESP 18
--- NOTE | 2019-09-23 14:26 | PM.NDC ---
Diagnoses at Discharge Discharge Diagnosis (1) Acute psychosis: Status: Acute (2) Acute delirium: Status: Acute Reason for Visit Reason for Visit: Reason For Visit: ACUTE PSYCHOSIS, 96 HR HOLD Brief History: HPI NPU History of Present Illness Jose Alfredo Page is a 59 year old male Chief complaint: We are at [facility] in [facility]. We are in an office building. But not 1 of the Good ones. We are in the 1 with the [employer].. I'm 70 years old And I have a 5-year-old daughter. We had her when I was 26. History of present illness: Jose Alfredo Page is a 59 year old male. At seems to be true. Otherwise, is not real clear how he wound up on a psychiatric unit. Emergency room note displayed below. He has no prior psychiatric history. He does not know these in the psychiatric unit. Begin figure why he would be a psychiatric unit. He admits that he smokes marijuana but says that doesn't seem to be a problem as he been doing it every day since he was 6 years old. The patient is not a reliable source of information. It is noted that he has an untreated urinary tract infection and his white count is elevated. His urine drug screen is positive for marijuana and benzodiazepines. Laboratory Tests 09/14/19 09/14/19 09/14/19 21:48 21:48 22:45 WBC 12.5 H Plt Count 570 H Urine Bilirubin Urine Urobilinogen Ur Leukocyte Esterase Urine RBC Urine WBC Urine Bacteria Urine Opiates Screen Positve Ur Barbiturates Screen Negative Ur Phencyclidine Scrn Negative Ur Amphetamines Screen Negative U Benzodiazepines Scrn Positive H Urine Cocaine Screen Negative U Marijuana (THC) Screen Positive H Ethyl Alcohol < 10 09/14/19 22:45 WBC Plt Count Urine Bilirubin 1+ H Urine Urobilinogen 1 H Ur Leukocyte Esterase 2+ H Urine RBC 0-4 H Urine WBC 15-25 H Urine Bacteria 1+ H Urine Opiates Screen Ur Barbiturates Screen Ur Phencyclidine Scrn Ur Amphetamines Screen U Benzodiazepines Scrn Urine Cocaine Screen U Marijuana (THC) Screen Ethyl Alcohol He has no complaints today. He apologized for losing his temper at me this morning. It is 1530 and this is the first time that I met him. He makes no requests. 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 We cannot confirm any of that. At this point we have many more questions and redo answers. However even without corroborating evidence, it is clear that he is oriented only to self and his memory is globally impaired. ER physician note: HPI Narrative: 59 yo Male presents to ED with complaint of psychiatric symptoms. Pt states that he would like to talk to a watch guard gate because it is his rights. Pt states that he has chest pain and his knuckels are chapped again. Pt states that he has trouble breathing but it doesn't matter because he has been in pain forever. Pt states that he has chronic pain that he was dealing with with Dr. Reveles. Pt states that he would rather speak to a watch guard gate before he says anything. Mental health history:There is no history of mental health intervention his [facility] chart extending back several years. Patient states he has never seen a psychiatrist or been on a psychiatric unit. 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 Gives that appearance in that general demeanor. He references the quite a bit but is unable to state whether he was in the . At various times he said that he gruff, [place], [place]. Legal history:There is no [place] public record of arrest for Felonies or incarcerations. Past medical history:Resiliency record is back to 2006. History of psychiatric intervention of any kind. He has had considerable cardiovascular difficulties and he says that he has had a stroke. However his only hospitalization was for an appendectomy In 2015.This should be noted that I'm unable to find documentation for the vast number of medical presentations in the old electronic medical record. Mental Status Exam: Patient is a tall lanky man with an unshaven sun and disheveled appearance though with good hygiene. He appears older than stated age. He is ambulatory and there are no gross neurological deficits. There are no focal neurological deficits consistent with a recent stroke. I contact is good. There is no attention to internal stimuli. He is believed to be a reliable informant to the best of his ability. Appearance: hygiene is fair; no gross neurological deficits., gait is unremarkable; AIMS=0 Speech: Speech is of normal rate and rhythm and easily understood. Thought processes: Thought processes are Disorganized. Judgment is not adequate for safety. Psychotic processes: There is no indication of guarding or paranoia. There is no attention to the internal stimuli. Auditory and visual hallucinations are denied. Judgment: Insight is Poor. Problem solving skills are Notadequate for safety. Orientation: The patient is oriented to Himself only. Memory: His description of personal memory is so bizarreness to be unable to corroborate it against available evidence but it appears that his self-report of memory is completely invalid. Attention: The patient is alert and interpersonally engaged. Language: Verbalizations are coherent. Fund of knowledge: Fund of knowledge is Poor Affect/Mood: Affect is consistent with a Euthymic mood. He denied suicidal ideation Affective range appropriate. Psychosis: Perception is severely impaired reality testing is negligible given his degree of disorientation and lack of awareness. Diagnoses:Delirium?etiology unknown Urinary tract infection Recent marijuana use with known contaminated marijuana leading to delirium in the community. Hospital Course Hospital Course Jose Alfredo presented to the emergency room and anders delirium with concern for psychosis. He was very confused and so he was admitted to the neuropsychiatric unit. He was very aggressive and violent and required multiple restraints but then once the delirium cleared and his UTI was treated he became very pleasant and was very apologetic for the problems he caused during his confused state. He was treated with Geodon IM and then oral Geodon and had a profound improvement with from that and antibiotics. During the hospitalization he had routine laboratory studies was within normal limits except for a few outliers. Additionally he had a general medical evaluation which was within normal limits except for the UTI/delirium and revealed no other acute processes. Discharge Summary At the time of discharge he denied all lethality, he was asked and psychosis, his delirium had resolved and he endorse a plan to follow with outpatient services as recommended. He had obtained maximum benefit from inpatient hospitalization so he was discharged. Involuntary Hold Information 96 Hour Hold: 96 Hour Involuntary Admission: Yes 96 Hour Hold Ending Date: 09/20/19 96 Hour Hold Ending Time: 23:26 21 Day Hold: 21 Day Hold Start Date: 09/21/19 21 Day Hold Start Time: 15:30 21 Day Hold End Date: 10/12/19 21 Day Hold End Time: 15:30 Other Hold: Comments: This 21 day hold was rescinded. Mental Status Exam MSE Comments: This is a slender white male with a very significant sun with adequate dress and eye contact. No abnormal movements. Cooperative with exam in no acute distress. Speech was normal rate and volume. Mood described as good affect congruent. Thought process organized. Thought content: Patient denied any suicidal or homicidal ideations, there were no delusions reported or noted, he denied any auditory or visual hallucinations. Attention and concentration appeared intact and memory appears more reliable but none were formally tested. He is alert and oriented ?3. Insight and judgment were fair and improving. Discharge Data Data Completed and Pending: Completed Studies During Hospitalization Category Date Time Status CT head wo con* 7 0450 Routine Cat Scan 09/17/19 12:16 Completed Vitals: Last Vital Signs Temp 98.5 F 09/23/19 06:00 Pulse 92 09/23/19 06:00 Resp 18 09/23/19 14:00 BP 149/85 09/23/19 06:00 Pulse Ox 98 09/23/19 06:00 Discharge Plan Discharge Patient Disposition: Home, Self-Care Condition: Stable Prescriptions: New doxepin 50 mg Capsule 50 mg PO BEDTIME 30 Days Qty: 30 RF: 1 metoprolol tartrate 50 mg Tablet 50 mg PO TID 30 Days Qty: 90 RF: 1 ziprasidone HCl 40 mg Capsule 40 mg PO 0700 30 Days Qty: 30 RF: 1 DILT-XR 180 mg Capsule,Ext.Rel 24h Degradable 360 mg PO DAILY 30 Days Qty: 60 RF: 1 Continued Lipitor 40 mg Tablet 40 mg PO QPM RF: 0 oxycodone 30 mg Tablet 5XD MDD 150 mg PRN (Reason: Pain) RF: 0 Protonix 40 mg PO BID RF: 0 protriptyline 10 mg PO DAILY RF: 0 lactulose 10 gram 30 ml PO DAILY RF: 0 aspirin 81 mg PO DAILY RF: 0 Miralax 17 g PO DAILY RF: 0 clopidogrel 75 mg tablet 75 mg PO DAILY RF: 0 No Action hydroxyzine HCl 25 mg tablet 25 mg PO Q8H PRN (Reason: anxiety) Qty: 20 RF: 0 Discharge Orders: Discharge Order (Routine); Ordered 09/23/19 Ordered By: Panchito Moss Referrals: Pedro Luis Callejas MD [Physician] - 12/21/19 3:30 pm Magdalena Reveles DO [Primary Care Provider] - 09/28/19 10:40 am Discharge Diet: Regular Discharge Activity: Resume usual activity and Limit activity as instructed Activity Restrictions/Additional Instructions: If you want support after you leave the hospital, there is a man who helped get you here. He left his phone number for you... Cesar Moffett [phone]. He is with the [facility] in [facility]. If you need rehab for substance abuse you could consider [facility] [phone] [facility] [address] [address] An appointment has been made for primary care provider for follow-up. you could also receive individual therapy and psychiatric management if you follow-up at [facility]. [facility] ([facility]) [address] [facility]. [address] [address] Thursday through Thursday 7:30 a.m.-2:30 p.m. go during the walk-in hours and request services. Discharge Date/Time: 09/23/19 15:33 Discharge Attestations NPU Time Spent in Discharge Care*: less than 30 min Specific Discharge Activities: Specific discharge activities: educating patient, discussing with rn field case manager/social workers/dc planners, documenting/other paperwork and evaluating patient/reviewing data Coding Level of Care Code Acute T[employer] Duster for [facility] [place] Diagnoses Acute psychosis F23 Acute delirium R41.0
[2019-09-23 14:38] VITALS: BP 126/78; PULSE 88; RESP 18; TEMP 36.7; O2SAT 97
== END 2019-09-23 15:33 | disposition home or self-care (01) | DRG 885 ==
LOC: ER 23:42 → NP 23:43
PROVIDERS: Admitting Provider Psychiatry & Neurology Psychiatry; Emergency Provider Family Medicine; Family Provider Family Medicine; PCP Family Medicine; Visit Provider Psychiatry & Neurology Psychiatry
DX: F23 Brief psychotic disorder (principal); N39.0 Urinary tract infection, site not specified; F12.90 Cannabis use, unspecified, uncomplicated; F17.210 Nicotine dependence, cigarettes, uncomplicated; R41.0 Disorientation, unspecified; Z78.1 Physical restraint status
CPT/HCPCS: 12345; 36415; 70450; 80053; 80307; 81001; 84443; 85025; 87086; 96372; 99284; J1630; J2060; J3486; Q0162

== ENCOUNTER 2019-09-24 21:39 | Inpatient (IN) | payer MEDICARE, SELFPAY ==
[2019-09-24 21:49] VITALS: BP 127/96; PULSE 94; RESP 15; TEMP 37.2; O2SAT 97; BMI 20.9
--- NOTE | 2019-09-24 21:58 | XRR_ITS ---
PROCEDURE INFORMATION: Exam: XR Cervical Spine, 2 or 3 Views Exam date and time: 09/24/2019 10:22 PM Age: 59 years old Clinical indication: Cervicalgia and neck pain and radicular pain (radiculopathy); Location of radicular pain not specified; Prior surgery; Surgery type: Spinal fusion. ; Patient HX: Spine pain. The t spine was done in addition to the cervical. I accidentally sent a film without any data. ; Additional info: Injury TECHNIQUE: Imaging protocol: XR of the cervical spine, 2 or 3 views. COMPARISON: No relevant prior studies available. FINDINGS: Vertebrae: There is a satisfactory appearance of the anterior and posterior fusion in the cervical spine extending from C3 to C7. No acute fracture. Moderate degenerative changes are noted. Soft tissues: Normal. Other findings: No hardware failure. XR/XR cervical spine 3V* [id number] IMPRESSION: No acute abnormality. Postoperative changes are noted as above.
--- NOTE | 2019-09-24 21:58 | XRR_ITS ---
PROCEDURE INFORMATION: Exam: XR Thoracic Spine, 3 Views Exam date and time: 09/24/2019 10:28 PM Age: 59 years old Clinical indication: Pain in thoracic spine; Prior surgery; Surgery type: Back surgery, hernia surgery; Additional info: Injury. C spine xrays were done too. Swimmers is in the c spine. TECHNIQUE: Imaging protocol: XR of the thoracic spine, 3 views. COMPARISON: No relevant prior studies available. FINDINGS: Vertebrae: There is osteopenia with moderate diffuse degenerative changes. Mild chronic anterior wedging of T12 and T11 are noted. Postoperative changes in the cervical spine are noted. No acute fracture. Other bones/joints: Old healed left rib fractures are noted. Soft tissues: Normal. XR/XR thoracic spine 3V* [id number] IMPRESSION: Degenerative changes. No acute bony abnormality.
--- NOTE | 2019-09-24 21:58 | XRR_ITS ---
PROCEDURE INFORMATION: Exam: XR Right Hand Exam date and time: 09/24/2019 10:34 PM Age: 59 years old Clinical indication: Right; Patient HX: Bilateral hand pain with radiating pain up the forearm; Additional info: Injury TECHNIQUE: Imaging protocol: XR Right hand. Views: 3 or more views. COMPARISON: No relevant prior studies available. FINDINGS: Bones/joints: Old postoperative changes are noted in the hand and wrist. There is old fracture deformity in the wrist and evidence of old hardware that has been removed. There are moderate degenerative changes in the hand and severe degenerative changes in the wrist. No acute fracture or dislocation. There is some bony remodeling of the metacarpal heads and carpal bones that may reflect old inflammatory arthritis. No chondrocalcinosis. Soft tissues: Normal. XR/XR hand RT min 3V* [id number] IMPRESSION: Chronic findings as above. No acute bony abnormality.
--- NOTE | 2019-09-24 21:58 | XRR_ITS ---
PROCEDURE INFORMATION: Exam: XR Left Hand Exam date and time: 09/24/2019 10:32 PM Age: 59 years old Clinical indication: Patient HX: Bilateral hand pain. ; Additional info: Injury TECHNIQUE: Imaging protocol: XR Left hand. Views: 3 or more views. COMPARISON: No relevant prior studies available. FINDINGS: Bones/joints: There are moderate to severe degenerative changes of the 1st MCP joint and 1st interphalangeal joint. The bone density is appropriate. No periosteal reaction. No osteomyelitis. No acute fracture or dislocation. No bony destructive changes. Soft tissues: No foreign body. No gas in the soft tissues. XR/XR hand LT min 3V* [id number] IMPRESSION: No acute bony abnormality.
--- NOTE | 2019-09-24 21:59 | W.ED.FALL ---
Documented by User: RUDOLPH Story 09/25/19 01:16 HPI - Fall General: Chief Complaint: Fall Stated Complaint: FALL-NECK PAIN Time Seen by Provider: 09/24/19 21:54 History of Present Illness: HPI Narrative: Patient comes in today for complaints of being tossed forward out of his wheelchair. Patient has a history of neck fractures with surgical repair and has chronic leg weakness that requires him to be in a wheelchair at times. Patient complains of neck pain and bilateral hand pain. Patient appears well. And no obvious deformity is noted. Patient moves all extremities and neck without difficulty. Associated symptoms-after fall: Reports neck pain Review of Systems General: Reports: 10 or more systems reviewed and unremarkable except in HPI and below Musc: Reports: neck pain PFSH ED PFSH: Statuses (acute, chronic, etc) shown below reflect problem list status as previously entered and may not be historically accurate Social History (Updated 09/14/19 @ 21:23 by Chanel Hanson) Smoking and tobacco status: former smoker Alcohol intake: current Physical Exam Const: COMMON NORMALS: no apparent distress and oriented x3 GENERAL APPEARANCE: cooperative HENMT: COMMON NORMALS: normocephalic, external ears normal, EAC's normal, TM's normal bilaterally and external nose normal HEAD & SCALP: normal to inspection and normocephalic FACE & SINUS: normal facial exam NOSE: external nose normal GENERAL EAR: hearing not grossly impaired EXTERNAL EAR: Yes external ears normal EXTERNAL AUDITORY CANAL: EAC's normal TYMPANIC MEMBRANE: TM's normal bilaterally MOUTH: oral and palatal mucosa normal THROAT: posterior oropharynx normal Eye: COMMON NORMALS: PERRL and EOMs intact bilaterally PUPIL: Yes PERRL Neck/C-Spine: COMMON NORMALS: full ROM and no lymphadenopathy GENERAL: Yes other (surgical scar to posterior neck, paraspinous tenderness, no drop off or def) Lymph: LYMPHATIC: no lymphedema noted Chest: COMMONS NORMALS: inspection of chest normal and palpation of chest normal Resp: COMMON NORMALS: normal respiratory effort and clear to auscultation bilaterally AUSCULTATION: clear to auscultation bilaterally Cardio: COMMON NORMALS: regular rate and regular rhythm RATE: regular rate RHYTHM: regular rhythm GI: COMMON NORMALS: normal to inspection, nondistended, normoactive bowel sounds and non-tender : COMMON NORMALS: Yes no CVA tenderness BLADDER/KIDNEY EXAM: Yes no CVA tenderness Back/Pelvis: COMMON NORMALS: no CVA tenderness and thoracic and lumbar spine normal to inspection Extremity: NARRATIVE EXTREMITY EXAM: Bilateral hand tenderness GENERAL: No edema Neuro: COMMON NORMALS: oriented x3, moves all extremities and no focal motor deficits Psych: COMMON NORMALS: mental status grossly normal and cooperative Skin: COMMON NORMALS: no rashes or lesions noted GENERAL SKIN EXAM: no rashes or lesions noted Course ED course: 2319, patient started complaining about being really anxious and upset about his third leaving him. Patient states that he does not think he can handle it anymore and wants to harm himself or someone else. Patient was recently treated with Geodon and reports that it does not seem to help for his thoughts. Patient is asking for help and will need admission into the psychiatric unit. Patient was medicated with hydroxyzine, Haldol, and Ativan for his anxiety and agitation. 2339, reviewed with Dr. Ritchie about patient suicidal though and agitation. agreed with present plan 114, Dr. Ritchie discussed with Dr. Veliz, agreed to admission. Vital Signs: Vital signs: Vital Signs Temperature 98.9 F 09/24/19 21:49 Pulse Rate 94 09/24/19 21:49 Respiratory Rate 15 09/24/19 21:49 Blood Pressure 127/96 09/24/19 21:49 Pulse Oximetry 97 09/24/19 21:49 MDM - Fall MDM Narrative: Medical decision making narrative: Patient came in today for concerns of fall and injury. After the exam for the fall and injury and patient was cleared of injuries patient then became agitated and restless stating that he was suicidal due to his leaving him for his brother. Patient said that or he would kill his brother. Patient was then worked up for psychiatric complaints. I consulted Dr. Rtichie who agreed to plan and patient was in put into NPU with Dr. Moss agreement to admission. Patient needs admission to [facility] you for medication evaluation and treatment for depression and agitation. Patient also needs monitoring for risk to self and others. Lab Data: Labs: Lab Results 09/24/19 09/24/19 Range/Units 23:22 23:22 WBC 13.9 H (4.0-10.0) 10^3/ uL RBC 4.56 (4.1-5.3) 10^6/u L Hgb 12.9 (11.7-16.6) g/dL Hct 39.9 L (42.0-52.0) % MCV 87.5 (80-94) fL MCH 28.3 (28.0-34.0) pg MCHC 32.3 (30.0-36.0) g/dL RDW 15.1 (12.1-15.1) % Plt Count 608 H (130-400) 10^3/c mm MPV 8.5 (7.4-10.4) fL Neut % (Auto) 70.4 % Lymph % (Auto) 21.1 % Fannin % (Auto) 7.8 % Eos % (Auto) 0.2 % Baso % (Auto) 0.1 % Neut # (Auto) 9.8 H (1.8-7.7) 10^3/u L Lymph # (Auto) 2.9 (0.8-4.8) 10^3/u L Fannin # (Auto) 1.1 H (0.2-0.9) 10^3/u L Eos # (Auto) 0.0 (0.0-0.8) 10^3/u L Baso # (Auto) 0.0 (0.0-0.1) 10^3/u L Nucleated RBC % (a uto) 0 % Nucleated RBCs # 0.0 /100WBC Sodium 142 (136-145) mmol/L Potassium 4.0 (3.5-5.1) mmol/L Chloride 106 (98-107) mmol/L Carbon Dioxide 25 (22-29) mmol/L Anion Gap 15.0 (5-19) BUN 22 H (6-20) mg/dL Creatinine 1.1 (0.7-1.2) mg/dL GFR Calculation 68.5 L (90-130) mL/min Glucose 137 H (74-109) mg/dL Calcium 10.2 (8.5-10.5) mg/dL Total Bilirubin 0.3 (0.15-1.2) mg/dL AST 25 (0-40) U/L ALT 19 (0-41) U/L Alkaline Phosphata se 87 (40-130) IU/L Total Protein 7.9 (6.6-8.7) g/dL Albumin 4.4 (3.5-5.2) g/dL Globulin 3.5 (1.3-4.6) g/dL Salicylates < 0.3 L (3-10) mg/dL Acetaminophen < 5.0 L (10-30) ug/mL Ethyl Alcohol < 10 (0-10) mg/dL Discharge Plan Discharge Patient Disposition: Admitted As Inpatient Admit Provider: Panchito Moss Clinical Impression: Fall from chair, initial encounter, Anxiety, Suicidal thoughts Condition: Stable Referrals: Magdalena Reveles DO [Primary Care Provider] - Discharge Diet: Usual diet Discharge Activity: Resume usual activity Patient Instructions: Anxiety (ED) Additional Instructions: Home and rest Activity as tolerated Medications as directed Follow-up with primary care in 2 days for recheck Return to ER as needed for worsening symptom or new concerns Discharge Date/Time: 09/25/19 03:03 Coding Level of Care Code ED Paediatric Physiotherapist for Chg Fwd Exam Problem Focused Documented by User: Faheem Ritchie DO 09/25/19 03:18 HPI - Fall General: Chief Complaint: Fall Stated Complaint: FALL-NECK PAIN Time Seen by Provider: 09/24/19 21:54 [facility] ED PFSH: Statuses (acute, chronic, etc) shown below reflect problem list status as previously entered and may not be historically accurate Social History (Updated 09/14/19 @ 21:23 by Chanel Hanson) Smoking and tobacco status: former smoker Alcohol intake: current Course ED course: 59-year-old male recently discharged from the Neuropsych Unit. He was originally seen by RUDOLPH Lee. I agree with his history, assessment, and treatment. The patient began to complain of suicidal ideation, and homicidal ideations towards his brother. It appears his had left him for his brother. We spoke to the psychiatrist, who agrees to admit the patient to the NPU. He is medically stable. Consultations: Consultation #1: emilie Time: 01:06 Vital Signs: Vital signs: Vital Signs Temperature 98.9 F 09/24/19 21:49 Pulse Rate 94 09/24/19 21:49 Respiratory Rate 15 09/24/19 21:49 Blood Pressure 127/96 09/24/19 21:49 Pulse Oximetry 97 09/24/19 21:49 MDM - Fall Lab Data: Labs: Lab Results 09/24/19 09/24/19 Range/Units 23:22 23:22 WBC 13.9 H (4.0-10.0) 10^3/ uL RBC 4.56 (4.1-5.3) 10^6/u L Hgb 12.9 (11.7-16.6) g/dL Hct 39.9 L (42.0-52.0) % MCV 87.5 (80-94) fL MCH 28.3 (28.0-34.0) pg MCHC 32.3 (30.0-36.0) g/dL RDW 15.1 (12.1-15.1) % Plt Count 608 H (130-400) 10^3/c mm MPV 8.5 (7.4-10.4) fL Neut % (Auto) 70.4 % Lymph % (Auto) 21.1 % Fannin % (Auto) 7.8 % Eos % (Auto) 0.2 % Baso % (Auto) 0.1 % Neut # (Auto) 9.8 H (1.8-7.7) 10^3/u L Lymph # (Auto) 2.9 (0.8-4.8) 10^3/u L Fannin # (Auto) 1.1 H (0.2-0.9) 10^3/u L Eos # (Auto) 0.0 (0.0-0.8) 10^3/u L Baso # (Auto) 0.0 (0.0-0.1) 10^3/u L Nucleated RBC % (a uto) 0 % Nucleated RBCs # 0.0 /100WBC Sodium 142 (136-145) mmol/L Potassium 4.0 (3.5-5.1) mmol/L Chloride 106 (98-107) mmol/L Carbon Dioxide 25 (22-29) mmol/L Anion Gap 15.0 (5-19) BUN 22 H (6-20) mg/dL Creatinine 1.1 (0.7-1.2) mg/dL GFR Calculation 68.5 L (90-130) mL/min Glucose 137 H (74-109) mg/dL Calcium 10.2 (8.5-10.5) mg/dL Total Bilirubin 0.3 (0.15-1.2) mg/dL AST 25 (0-40) U/L ALT 19 (0-41) U/L Alkaline Phosphata se 87 (40-130) IU/L Total Protein 7.9 (6.6-8.7) g/dL Albumin 4.4 (3.5-5.2) g/dL Globulin 3.5 (1.3-4.6) g/dL Salicylates < 0.3 L (3-10) mg/dL Acetaminophen < 5.0 L (10-30) ug/mL Ethyl Alcohol < 10 (0-10) mg/dL Discharge Plan Discharge Patient Disposition: Admitted As Inpatient Admit Provider: Panchito Moss Clinical Impression: Fall from chair, initial encounter, Anxiety, Suicidal thoughts Condition: Stable Referrals: Magdalena Reveles DO [Primary Care Provider] - Discharge Diet: Usual diet Discharge Activity: Resume usual activity Patient Instructions: Anxiety (ED) Additional Instructions: Home and rest Activity as tolerated Medications as directed Follow-up with primary care in 2 days for recheck Return to ER as needed for worsening symptom or new concerns Discharge Date/Time: 09/25/19 03:03 Coding Level of Care Code ED Paediatric Physiotherapist for [facility]ero [place] Exam Problem Focused
[2019-09-24] MEDS: hyDROXYzine 25 mg Capsule 50 MG PO (23:11)
--- NOTE | 2019-09-24 23:20 | PC.NURSE ---
I went to give pt hydroxizine and he stated he was very anxious and began rambling. He stated he lost his old lady a little while ago and he's not saying he wants to hurt himself, but he might . Charge nurse, STORE DELI MANAGER, and notified. pt moved to psych room and placed on suicide precautions
[2019-09-24] MEDS: LORazepam 1 mg Tablet 2 MG PO (23:30)
[2019-09-24] MEDS: haloperidol 5 mg Tablet PO (23:30)
[2019-09-24 23:34] LABS: Basophils % 0.1 %; Eosinophils % 0.2 %; Hematocrit 39.9 % (42.0-52.0); Hemoglobin 12.9 g/dL (11.7-16.6); Lymphocytes # 2.9 10^3/uL (0.8-4.8); Lymphocytes % 21.1 %; Mean Corpuscular HGB Conc 32.3 g/dL (30.0-36.0); Mean Corpuscular Hemoglobin 28.3 pg (28.0-34.0); Mean Corpuscular Volume 87.5 fL (80-94); Mean Platelet Volume 8.5 fL (7.4-10.4); Monocytes # 1.1 10^3/uL (0.2-0.9); Monocytes % 7.8 %; Neutrophils # 9.8 10^3/uL (1.8-7.7); Neutrophils % 70.4 %; Nucleated Red Blood Cells % 0 %; Platelet Count 608 10^3/cmm (130-400); Red Blood Count 4.56 10^6/uL (4.1-5.3); Red Cell Distribution Width 15.1 % (12.1-15.1); White Blood Count 13.9 10^3/uL (4.0-10.0)
[2019-09-24 23:47] LABS: Alanine Aminotransferase 19 U/L (0-41); Albumin Level 4.4 g/dL (3.5-5.2); Alkaline Phosphatase 87 IU/L (40-130); Aspartate Amino Transferase 25 U/L (0-40); Blood Urea Nitrogen 22 mg/dL (6-20); Calcium 10.2 mg/dL (8.5-10.5); Carbon Dioxide 25 mmol/L (22-29); Chloride 106 mmol/L (98-107); Globulin 3.5 g/dL (1.3-4.6); Glomerular Filtration Rate 68.5 mL/min (90-130); Glucose 137 mg/dL (74-109); Sodium 142 mmol/L (136-145); Total Bilirubin 0.3 mg/dL (0.15-1.2); Total Protein 7.9 g/dL (6.6-8.7)
[2019-09-25 00:01] LABS: Acetaminophen < 5.0 ug/mL (10-30); Alcohol Level < 10 mg/dL (0-10); Salicylate < 0.3 mg/dL (3-10)
[2019-09-25 03:09] VITALS: BP 137/79; PULSE 80; RESP 20; O2SAT 98
[2019-09-25 06:48] LABS: Amphetamines Screen Urine Negative (Negative); Barbiturates Screen Urine Negative (Negative); Benzodiazepines Screen Urine Negative (Negative); Cocaine Screen Urine Negative (Negative); Opiate Screen Urine Negative (Negative); PCP Screen Urine Negative (Negative); THC Screen Urine Positive (Negative)
[2019-09-25] MEDS: nicotine 21 mg Patch 1 PATCH TRANSDERMA (13:32)
--- NOTE | 2019-09-25 13:46 | PM.NHP ---
Providers/Chief Complaint Admitting Physician: Panchito Moss MD Primary Care Provider: Magdalena Reveles DO Chief Complaint: FALL-NECK PAIN HPI NPU History of Present Illness Jose Alferdo Page is a 59 year old male who presented to the emergency room after just being discharged on September 23. He reports that when he got to his trailer that he shared with his girlfriend all of his valuables were gone including his car. Very frustrated about having the start over. Additionally during the whole time he had been in the hospital apparently no one was taking care of the animals and he reports that there were bags of cat feces. We discussed the fact that this admission wasn't for a long stent but to make sure that he was stable and he needed to figure out what his plan was. He reports that he has a good friend of the [facility] on take care of some of the issues at house though he is thinking about not returning there. Ultimately he plans on maybe doing an assisted living center that can help him with his medication and overall ADLs. We agreed that we would meet with the full treatment team on Thursday and see what the possibilities are an determined from that but will do as far as him being discharged on Thursday. We reviewed his psychosocial information from the last hospitalization which was days ago and he denied any significant changes. Diagnoses at Discharge Discharge Diagnosis (1) Acute psychosis: Status: Acute (2) Acute delirium: Status: Acute Reason for Visit Reason for Visit: Reason For Visit: ACUTE PSYCHOSIS, 96 HR HOLD Brief History: HPI NPU History of Present Illness Jose Alfredo Page is a 59 year old male Chief complaint: We are at [facility] in [facility]. We are in an office building. But not 1 of the Good ones. We are in the 1 with the [employer].. I'm 70 years old And I have a 5-year-old daughter. We had her when I was 26. History of present illness: Jose Alfredo Page is a 59 year old male. At seems to be true. Otherwise, is not real clear how he wound up on a psychiatric unit. Emergency room note displayed below. He has no prior psychiatric history. He does not know these in the psychiatric unit. Begin figure why he would be a psychiatric unit. He admits that he smokes marijuana but says that doesn't seem to be a problem as he been doing it every day since he was 6 years old. The patient is not a reliable source of information. It is noted that he has an untreated urinary tract infection and his white count is elevated. His urine drug screen is positive for marijuana and benzodiazepines. Laboratory Tests 09/14/19 09/14/19 09/14/19 21:48 21:48 22:45 WBC 12.5 H Plt Count 570 H Urine Bilirubin Urine Urobilinogen Ur Leukocyte Esterase Urine RBC Urine WBC Urine Bacteria Urine Opiates Screen Positve Ur Barbiturates Screen Negative Ur Phencyclidine Scrn Negative Ur Amphetamines Screen Negative U Benzodiazepines Scrn Positive H Urine Cocaine Screen Negative U Marijuana (THC) Screen Positive H Ethyl Alcohol < 10 09/14/19 22:45 WBC Plt Count Urine Bilirubin 1+ H Urine Urobilinogen 1 H Ur Leukocyte Esterase 2+ H Urine RBC 0-4 H Urine WBC 15-25 H Urine Bacteria 1+ H Urine Opiates Screen Ur Barbiturates Screen Ur Phencyclidine Scrn Ur Amphetamines Screen U Benzodiazepines Scrn Urine Cocaine Screen U Marijuana (THC) Screen Ethyl Alcohol He has no complaints today. He apologized for losing his temper at me this morning. It is 1530 and this is the first time that I met him. He makes no requests. 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 We cannot confirm any of that. At this point we have many more questions and redo answers. However even without corroborating evidence, it is clear that he is oriented only to self and his memory is globally impaired. ER physician note: HPI Narrative: 59 yo Male presents to ED with complaint of psychiatric symptoms. Pt states that he would like to talk to a clinical psychologist licensed because it is his rights. Pt states that he has chest pain and his knuckels are chapped again. Pt states that he has trouble breathing but it doesn't matter because he has been in pain forever. Pt states that he has chronic pain that he was dealing with with Dr. Reveles. Pt states that he would rather speak to a clinical psychologist licensed before he says anything. Mental health history:There is no history of mental health intervention his [facility] chart extending back several years. Patient states he has never seen a psychiatrist or been on a psychiatric unit. Social history:Patient states that he spent a lot of time in his life riding [employer]. Gives that appearance in that general demeanor. He references the quite a bit but is unable to state whether he was in the . At various times he said that he gruff, [place], [place]. Legal history:There is no [place] public record of arrest for Felonies or incarcerations. Past medical history:Resiliency record is back to 2006. History of psychiatric intervention of any kind. He has had considerable cardiovascular difficulties and he says that he has had a stroke. However his only hospitalization was for an appendectomy In 2014.This should be noted that I'm unable to find documentation for the vast number of medical presentations in the old electronic medical record. Mental Status Exam: Patient is a tall lanky man with an unshaven sun and disheveled appearance though with good hygiene. He appears older than stated age. He is ambulatory and there are no gross neurological deficits. There are no focal neurological deficits consistent with a recent stroke. I contact is good. There is no attention to internal stimuli. He is believed to be a reliable informant to the best of his ability. Appearance: hygiene is fair; no gross neurological deficits., gait is unremarkable; AIMS=0 Speech: Speech is of normal rate and rhythm and easily understood. Thought processes: Thought processes are Disorganized. Judgment is not adequate for safety. Psychotic processes: There is no indication of guarding or paranoia. There is no attention to the internal stimuli. Auditory and visual hallucinations are denied. Judgment: Insight is Poor. Problem solving skills are Notadequate for safety. Orientation: The patient is oriented to Himself only. Memory: His description of personal memory is so bizarreness to be unable to corroborate it against available evidence but it appears that his self-report of memory is completely invalid. Attention: The patient is alert and interpersonally engaged. Language: Verbalizations are coherent. Fund of knowledge: Fund of knowledge is Poor Affect/Mood: Affect is consistent with a Euthymic mood. He denied suicidal ideation Affective range appropriate. Psychosis: Perception is severely impaired reality testing is negligible given his degree of disorientation and lack of awareness. Diagnoses:Delirium?etiology unknown Urinary tract infection Recent marijuana use with known contaminated marijuana leading to delirium in the community. Hospital Course Hospital Course Jose Alfredo presented to the emergency room and anders delirium with concern for psychosis. He was very confused and so he was admitted to the neuropsychiatric unit. He was very aggressive and violent and required multiple restraints but then once the delirium cleared and his UTI was treated he became very pleasant and was very apologetic for the problems he caused during his confused state. He was treated with Geodon IM and then oral Geodon and had a profound improvement with from that and antibiotics. During the hospitalization he had routine laboratory studies was within normal limits except for a few outliers. Additionally he had a general medical evaluation which was within normal limits except for the UTI/delirium and revealed no other acute processes. Discharge Summary At the time of discharge he denied all lethality, he was asked and psychosis, his delirium had resolved and he endorse a plan to follow with outpatient services as recommended. He had obtained maximum benefit from inpatient hospitalization so he was discharged. Meds NPU Home Medications Medication Instructions Recorded Confirmed Type Miralax 17 g PO DAILY 09/16/19 09/25/19 History Protonix 40 mg PO BID 09/16/19 09/25/19 History aspirin 81 mg PO DAILY 09/16/19 09/25/19 History atorvastatin [Lipitor] 40 mg PO QPM 09/16/19 09/25/19 History lactulose 10 g PO DAILY 09/16/19 09/25/19 History oxycodone [Roxicodone] 30 mg PO 5XD PRN MDD 150 mg 09/16/19 09/25/19 History protriptyline 10 mg PO DAILY 09/16/19 09/25/19 History clopidogrel [Plavix] 75 mg PO DAILY 09/23/19 09/25/19 History atorvastatin [Lipitor] 40 mg PO QPM 09/25/19 09/25/19 History metoprolol tartrate [Lopressor] 50 mg PO TID 09/25/19 09/25/19 History ziprasidone HCl [Geodon] 40 mg PO 0700 09/25/19 09/25/19 History Allergies Allergy/AdvReac Type Severity Reaction Status Date / Time fentanyl Allergy ADR-Diarrhe Verified 09/24/19 21:59 a PFS NPU PFSH: Statuses (acute, chronic, etc) shown below reflect problem list status as previously entered and may not be historically accurate Social History (Updated 09/14/19 @ 21:23 by Chanel Hanson) Smoking and tobacco status: former smoker Alcohol intake: current Mental Status Exam MSE Comments: This is a slender white male with a very significant sun with adequate dress and eye contact. No abnormal movements. Cooperative with exam in no acute distress. Speech was normal rate and volume. Mood described as annoyed affect congruent. Thought process organized. Thought content: Patient denied any suicidal or homicidal ideations, there were no delusions reported or noted, he denied any auditory or visual hallucinations. Attention and concentration appeared intact and memory appears more reliable but none were formally tested. He is alert and oriented ?3. Insight and judgment were improving. Vitals/I&O/Wt Last Vital Signs Temp 98.9 F 09/24/19 21:49 Pulse 80 09/25/19 03:09 Resp 20 H 09/25/19 03:09 BP 137/79 09/25/19 03:09 Pulse Ox 98 09/25/19 03:09 Weight last 48 hrs Weight 76.317 kg Weight 68.039 kg Data NPU : 09/24/19 23:22 09/24/19 23:22 A&P Additional A&P Information This is a 59-year-old white male who presented to the emergency room after a recent hospitalization where he was admitted to the neuro psych unit secondary to psychosis possibly related to recent withdrawal phenomenon who was continued on a 21-day-old due to lack of progress and now he presents secondary to psychosocial stressors when he attempted to return to his normal living environment. 1. Continue current medication. 2. Continue individual, group and milieu therapy. 3. Continue every 15 minute checks for safety. 4. Work with social work team to determine discharge plan and whether there are any reasonable assisted living options that would be attainable quickly. Involuntary Hold Information 96 Hour Hold: 96 Hour Involuntary Admission: No 96 Hour Hold Ending Date: 09/20/19 96 Hour Hold Ending Time: 23:26 21 Day Hold: 21 Day Hold Start Date: 09/21/19 21 Day Hold Start Time: 15:30 21 Day Hold End Date: 10/12/19 21 Day Hold End Time: 15:30 Attestations NPU Medical Necessity Statement*: Inpatient hospitalization is medically necessary and the clinically appropriate intervention at this time. We will monitor medications We'll work to determine whether options exist to get him into an assisted living environment, otherwise he will need to return to some other living arrangement while he awaits the referrals we make. Likely length of stay 1-3 days. Coding Level of Care Code Acute Account Associate for [facility]
[2019-09-25 14:00] VITALS: BP 137/79; PULSE 80; RESP 20
[2019-09-25] MEDS: ziprasidone hcl 20 mg Capsule PO (14:04)
[2019-09-25] MEDS: dilTIAZem ER (24HR) 180 mg Capsule 360 MG PO (16:00)
[2019-09-25] MEDS: acetaminophen 325 mg Tablet 650 MG PO ×2 (16:08→20:29)
[2019-09-25] MEDS: atorvastatin 40 mg Tablet PO (17:16)
[2019-09-25] MEDS: ziprasidone hcl 40 mg Capsule PO (17:17)
[2019-09-25] MEDS: pantoprazole DR 40 mg Tablet PO (17:17)
[2019-09-25] MEDS: doxepin 50 mg Capsule PO (20:29)
[2019-09-25] MEDS: metoprolol tartrate 50 mg Tablet PO (20:29)
[2019-09-25 22:00] VITALS: BP 113/63; PULSE 85; RESP 17; TEMP 37; O2SAT 98
[2019-09-26] MEDS: nicotine 2 mg Gum BUCCAL ×2 (01:36→22:20)
[2019-09-26] MEDS: OLANZapine ODT 5 MG TABLET PO ×2 (02:42→15:50)
--- NOTE | 2019-09-26 02:43 | PC.NURSE ---
PT UP TO DESK APPEARING SOMEWHAT AGITATED .C/O SEEING PEOPLE WHO WERE NOT PRESENT. MEDICATED WITH ZYPREXA ZYDIS 5 MGS PO. WILL CONTINUE TO MONITOR.
--- NOTE | 2019-09-26 04:09 | PC.NURSE ---
PT WENT TO BED SHORTLY AFTER RECEIVING PRN ZANTAC. HAS REMAINED ASLEEP AND APPEARS TO BE RESTING COMFORTABLY. WILL CONTINUE TO MONITOR FREQUENTLY
[2019-09-26 06:00] VITALS: BP 128/68; PULSE 78; RESP 20; TEMP 36.9; O2SAT 99
[2019-09-26] MEDS: ziprasidone hcl 40 mg Capsule PO ×2 (06:40→16:42)
[2019-09-26] MEDS: aspirin 81 mg EC Tablet PO (08:22)
[2019-09-26] MEDS: metoprolol tartrate 50 mg Tablet PO ×3 (08:22→21:18)
[2019-09-26] MEDS: pantoprazole DR 40 mg Tablet PO ×2 (08:22→16:40)
[2019-09-26] MEDS: dilTIAZem ER (24HR) 180 mg Capsule 360 MG PO (08:22)
[2019-09-26] MEDS: clopidogrel 75 mg Tablet PO (08:22)
--- NOTE | 2019-09-26 09:04 | PC.NURSE ---
refused scheduled Lactulose this morning
[2019-09-26 14:00] VITALS: BP 123/75; PULSE 74; RESP 20; TEMP 36.8; O2SAT 97
--- NOTE | 2019-09-26 15:09 | PM.NPN ---
Subjective NPU Subjective: Interval history: Jose Alfredo presented today in a fashion that this procedure writer had not previously seen. Likely more consistent with his initial presentation which required restraints and seclusion. Without warning he started reporting irritability and anxiety he was given multiple as needed medications in an attempt to assist him in reigning things back in. That did not help and things continued to escalate to the point where security was asked to come down to the unit. He met with this procedure writer and started making accusations about this procedure writer doing things to animals and hiding things up in the ceiling that were poisonous. He was unable to be reasoned with. Mental Status Exam MSE Comments: This is a slender white male with a very significant sun with adequate dress and eye contact. No abnormal movements. Uncooperative with exam in moderate distress. Speech was increased rate and volume. Mood described I know what you're doing affect paranoid and irritable. Thought process disorganized. Thought content: Patient denied any suicidal or homicidal ideations, there were no delusions reported, but paranoid and persecutory thinking exists, he denied any auditory or visual hallucinations. Attention and concentration were impaired and memory appears unreliable but none were formally tested. He is alert and oriented ?3. Insight and judgment were impaired. Vitals/I&O/Wt Last Vital Signs Temperature 98.7, pulse 77, respirations 18, pulse ox 97%, blood pressure 147/79. Data NPU : 09/24/19 23:22 09/24/19 23:22 A&P Assessment and plan (1) Psychosis: This is a 59-year-old white male who presented to the emergency room after a recent hospitalization where he was admitted to the neuro psych unit secondary to psychosis possibly related to recent withdrawal phenomenon who was continued on a 21-day-hold due to lack of progress and now he presents secondary to psychosocial stressors when he attempted to return to his normal living environment. 1. Continue current medication. 2. Continue individual, group and milieu therapy. 3. Continue every 15 minute checks for safety. 4. Work with social work team to determine discharge plan and whether there are any reasonable assisted living options that would be attainable quickly. 5. Explore possible causes for delirium. Status: Acute Code(s): F29 - Unspecified psychosis not due to a substance or known physiological condition (2) Delirium: Status: Acute Code(s): R41.0 - Disorientation, unspecified (3) Schizophrenia: Status: Acute Code(s): F20.9 - Schizophrenia, unspecified Involuntary Hold Information 96 Hour Hold: 96 Hour Involuntary Admission: No 96 Hour Hold Ending Date: 09/20/19 96 Hour Hold Ending Time: 23:26 21 Day Hold: 21 Day Hold Start Date: 09/21/19 21 Day Hold Start Time: 15:30 21 Day Hold End Date: 10/12/19 21 Day Hold End Time: 15:30 Attestations NPU Medical Necessity Statement*: Inpatient hospitalization is medically necessary and the clinically appropriate intervention at this time. We will monitor medications We'll work to determine whether options exist to get him into an assisted living environment, otherwise he will need to return to some other living arrangement while he awaits the referrals we make. Likely length of stay 2-4 days. Coding Level of Care Code Acute Senior Process Analyst for [facility] Fwd Diagnoses Psychosis F29 Delirium R41.0 Schizophrenia F20.9
[2019-09-26] MEDS: acetaminophen 325 mg Tablet 650 MG PO ×2 (15:47→23:31)
[2019-09-26] MEDS: hyDROXYzine 25 mg Capsule 50 MG PO (15:50)
--- NOTE | 2019-09-26 15:51 | PC.NURSE ---
PRN VISTARIL & ZYPREXA ZYDIS VISTARIL 50 MG GIVEN PO PER PT C/O ANXIETY. ZYPREXA ZYDIS 5 MG GIVEN PO PER PT C/O AGITATION. PT UPSET AFTER SPEAKING WITH HOME AND FAMILY LIVING PROFESSOR, PRESSURED RAPID SPEECH, ASKING STAFF WHY ARE YOU ALL SO MAD? STAFF TOLD PT THAT NO ONE WAS MAD AT HIM, WE WERE HERE TO HELP & PROVIDE GREAT CARE. REDIRECTED BY STAFF ABOUT TAKING PRN MEDICATIONS FOR ANXIETY/AGITATION. WILL CONT TO MONITOR FOR DESIRED MED EFFECTIVENESS.
[2019-09-26] MEDS: atorvastatin 40 mg Tablet PO (16:41)
[2019-09-26] MEDS: haloperidol 5 mg Tablet PO (17:34)
--- NOTE | 2019-09-26 17:34 | PC.NURSE ---
PRN HALDOL 5 MG GIVEN PO PER PT C/O INCREASED AGITATION/PSYCHOSIS. APPEARS TO BE RESPONDING TO INTERNAL STIMULI, RAPID PRESSURED SPEECH, TALKING TO HIMSELF IN THE DAY ROOM. TELLS STAFF REPEATEDLY THAT HE IS SORRY WE ARE ALL MAD AT HIM...HAVE YOU MET MY DAUGHTER...SHE'S SO NICE...YOU DON'T UNDERSTAND NOW BUT ONE DAY YOU WILL. TOOK PILL AFTER MUCH ENCOURAGEMENT FROM STAFF. WILL CONT TO MONITOR FOR DESIRED MED EFFECTIVENESS.
--- NOTE | 2019-09-26 17:40 | PC.NURSE ---
PATIENT BEHAVIOR BEGAN TO ESCALATE PATIENT THOUGHT THAT THERE WERE INFRARED LIGHTS POINTED DIRECTLY AT HIS HEAD. ESCORTED PATIENT TO HIS ROOM WHERE HE WAS NOT ORIENTED TO ANYTHING BUT HIS NAME AND BEBAN TO TELL THIS NARRATOR THAT HE COULD SEE THE PEOPLE OUTSIDE HIS WINDOW TRYING TO GET IN TO KILL HIM, PATIENT REPORTED THAT WE HAD TO KILL THEM FIRST. PATIENT THEN PROCEEDED TO WALK DOWN THE [place] LOOKING FOR THEM . PATIENT BEGAN RAISING HIS VOICE TO PATIENTS STANDING IN THE [place] AND WOULD NOT TO TAKE REDIRECTION VERY WELL AT THAT TIME. SECURITY WAS NOTIFIED TO AID IN DE ESCALATION. PATIENTS WELLBEING, IN THIS NURSES OPINION, WOULD BENEFIT FROM A ONE ON ONE SITTER AFTER BEHAVIOR DID NOT DE ESCALATE MUCH AFTER SECURITY INTERVENTION.
[2019-09-26] MEDS: trazodone 50 mg Tablet PO (20:35)
[2019-09-26] MEDS: doxepin 50 mg Capsule PO (21:17)
[2019-09-26 21:32] VITALS: BP 147/79; PULSE 77; RESP 18; TEMP 37.1; O2SAT 97
[2019-09-27 06:00] VITALS: BP 138/75; PULSE 83; RESP 16; TEMP 36.6; O2SAT 98
[2019-09-27] MEDS: ziprasidone hcl 40 mg Capsule PO ×2 (06:19→16:58)
[2019-09-27] MEDS: haloperidol 5 mg Tablet PO ×3 (07:30→16:58)
[2019-09-27] MEDS: hyDROXYzine 25 mg Capsule 50 MG PO ×2 (07:30→13:48)
--- NOTE | 2019-09-27 07:30 | PC.NURSE ---
Addendum entered by Jaye Mackay LPN 09/27/19 09:57: prn meds effective no further c/o agitation/anxiety currently pt cont to be 1:1 with sitter for pt safety Original Note: PRN HALDOL & VISTARIL HALDOL 5 MG GIVEN PO PER PT C/O AGITATION/HALLUCINATIONS. PRN VISTARIL 50 MG GIVEN PO PER PT C/O ANXIETY. WILL CONT TO MONITOR
[2019-09-27] MEDS: pantoprazole DR 40 mg Tablet PO ×2 (09:06→16:58)
[2019-09-27] MEDS: metoprolol tartrate 50 mg Tablet PO ×3 (09:06→21:05)
[2019-09-27] MEDS: aspirin 81 mg EC Tablet PO (09:06)
[2019-09-27] MEDS: clopidogrel 75 mg Tablet PO (09:06)
[2019-09-27] MEDS: dilTIAZem ER (24HR) 180 mg Capsule 360 MG PO (09:07)
--- NOTE | 2019-09-27 13:49 | PC.NURSE ---
PRN HALDOL & VISTARIL HALDOL 5 MG GIVEN PO PER PT C/O AGITATION. PRN VISTARIL 50 MG GIVEN PO PER PT C/O ANXIETY. RAPID PRESSURED SPEECH NOTED. IRRITABLE AFFECT NOTED. WILL CONT TO MONITOR.
--- NOTE | 2019-09-27 13:50 | PM.NPN ---
Subjective NPU Subjective: Interval history: Jose Alfredo presents today seeming to be out of sorts again. He requested to be discharged to go take care of his animals but he continues to seem irritable, full of conspiracy talk and accusations about what different staff members are involved in. We discussed our desire to make sure there is nothing going on that has caused his resurgence of these seemingly delirium-like symptoms hospitalist consult was initiated and lab work is pending as well as possible new lab work by the hospitalist. Mental Status Exam MSE Comments: This is a slender white male with a very significant sun with adequate dress and eye contact. No abnormal movements. Uncooperative with exam in moderate distress. Speech was increased rate and volume. Mood described as who are you fooling? Not me estimation were Thought process disorganized. Thought content: Patient denied any suicidal or homicidal ideations, there were no delusions reported, but paranoid and persecutory thinking exists, he denied any auditory or visual hallucinations. Attention and concentration were impaired and memory appears unreliable but none were formally tested. He is alert and oriented ?3. Insight and judgment were impaired. Vitals/I&O/Wt Last Vital Signs Temp 97.8 F 09/27/19 06:00 Pulse 83 09/27/19 06:00 Resp 16 09/27/19 06:00 BP 138/75 09/27/19 06:00 Pulse Ox 98 09/27/19 06:00 Data NPU : 09/24/19 23:22 09/24/19 23:22 A&P Additional A&P Information This is a 59-year-old white male who presented to the emergency room after a recent hospitalization where he was admitted to the neuro psych unit secondary to psychosis possibly related to recent withdrawal phenomenon who was continued on a 21-day-hold due to lack of progress and now he presents secondary to psychosocial stressors when he attempted to return to his normal living environment. 1. Continue current medication. 2. Continue individual, group and milieu therapy. 3. Continue every 15 minute checks for safety. 4. Work with social work team to determine discharge plan and whether there are any reasonable assisted living options that would be attainable quickly. 5. Explore possible causes for delirium. Hospitals consult in place for formal investigation. Question of whether the UTI didn't fully resolve or there is another source of infection. 6. Started Haldol 5 mg by mouth twice a day as scheduled medication while he is fighting this delirium. (2) Delirium: (3) Schizophrenia: Involuntary Hold Information 96 Hour Hold: 96 Hour Involuntary Admission: No 96 Hour Hold Ending Date: 09/20/19 96 Hour Hold Ending Time: 23:26 21 Day Hold: 21 Day Hold Start Date: 09/21/19 21 Day Hold Start Time: 15:30 21 Day Hold End Date: 10/12/19 21 Day Hold End Time: 15:30 Attestations NPU Medical Necessity Statement*: Inpatient hospitalization is medically necessary and the clinically appropriate intervention at this time. We will monitor medications and titrate to effect. We'll work to determine whether options exist to get him into an assisted living environment, otherwise he will need to return to some other living arrangement while he awaits the referrals we make. Will wait for hospitalists recommendation. Likely length of stay 2-4 days. 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
[2019-09-27 14:00] VITALS: BP 160/82; PULSE 72; RESP 20; TEMP 36.8; O2SAT 100
[2019-09-27] MEDS: nicotine 21 mg Patch 1 PATCH TRANSDERMA (16:37)
--- NOTE | 2019-09-27 16:45 | CTR_ITS ---
PROCEDURE INFORMATION: Exam: CT Abdomen And Pelvis With Contrast Exam date and time: 09/27/2019 8:05 PM Age: 59 years old Clinical indication: Abdominal pain; Prior surgery; Surgery type: Appy; Additional info: Epigastric area pain, weight loss TECHNIQUE: Imaging protocol: Computed tomography of the abdomen and pelvis with intravenous contrast. Total DLP: 657.14 mGy-cm Radiation optimization: All CT scans at this facility use at least one of these dose optimization techniques: automated exposure control; mA and/or kV adjustment per patient size (includes targeted exams where dose is matched to clinical indication); or iterative reconstruction. Contrast material: OMNI; Contrast volume: 95 ml; Contrast route: IV; COMPARISON: CT abdomen pelvis w con* [id number] 01/13/2015 3:03 PM FINDINGS: Liver: Chronic 0.8 cm left hepatic hypodensity is most likely incidental given stability since 2014. Gallbladder and bile ducts: The gallbladder is surgically absent. Pancreas: Normal. No ductal dilation. Spleen: Normal. No splenomegaly. Adrenals: Normal. No mass. Kidneys and ureters: Several bilateral simple renal cysts up to 2 cm. Follow-up is not necessary. Stomach and bowel: Unremarkable. No obstruction. No mucosal thickening. Appendix: No evidence of appendicitis. Intraperitoneal space: Unremarkable. No free air. No significant fluid collection. Vasculature: Scattered calcified plaque in the aorta and iliac arteries. Lymph nodes: Unremarkable. No enlarged lymph nodes. Bladder: Unremarkable as visualized. Reproductive: Unremarkable as visualized. Bones/joints: The multilevel chronic degenerative disc disease throughout the lumbar spine. Soft tissues: Unremarkable. Other findings: Chronic pericecal postop changes. CT/CT abdomen pelvis w con* [id number] IMPRESSION: No significant abdominal or pelvic findings. COMMENT: Consistent with the [place] [employer]'s Incidental Findings Committee white paper (J Am Rose Marie Radiol 2018): Any incidental cystic renal lesion classified in this report as too small to characterize or simple appearing is likely a benign cyst. No follow-up imaging is recommended for these lesions per consensus recommendations based on imaging criteria. Radiation Dose CTDIVOL = (mGy): DLP = 657.14 (mGy-cm)
--- NOTE | 2019-09-27 16:48 | PM.CONSULT ---
Providers/Reason For Consult Consulting Physican/Specialty*: Ajay, psychiatry Reason for Consult*: Leukocytosis, UTI Attending Physician: Panchito Moss MD Primary Care Provider: Magdalena Reveles DO History of Present Illness History of Present Illness Jose Alfredo Page is a 59 year old male is currently being admitted to the neuropsychiatric unit for treatment of psychosis. He noted to have leukocytosis and evidence of UTI. Hospitalist team was consulted for further evaluation. During my evaluation patient is agitated and reports that he wants to get out from here. Reports that he is breathing some mist here which is not healthy. He denies any shortness of breath or chest pain. He reports dysuria and reports epigastric area discomfort for many years. Reports that he lost a lot of weight in the last 1 year. He smokes 1 pack/day. He denies alcohol use or illicit drug use. Review of Systems Const: Denies: fever or chills Eyes: Denies: change in vision ENMT: Denies: throat pain or nasal congestion Card: Denies: chest pain, edema, lightheadedness, shortness of breath on exertion or shortness of breath when lying down Resp: Denies: shortness of breath, productive cough, non-productive cough or coughing up blood GI: Reports: abdominal pain; Denies: nausea, vomiting, vomiting blood, coffee grounds in vomit, difficulty swallowing, heartburn/indigestion, diarrhea, constipation, blood in stool or black tarry stool : Reports: flank pain, difficulty urinating, painful urination, urinary frequency, urinary hesitancy, urinary dribbling and erectile dysfunction Musc: Reports: neck pain and back pain; Denies: joint pain Skin/Breast: Denies: rash or itching Neuro: Denies: headache, numbness in extremities, weakness in extremities, changes in sensation or lack of coordination Psych: Denies: anxiety, depression, suicidal ideation or homicidal ideation Endo: Denies: cold intolerance, excessive sweating or heat intolerance Tian/Lymph: Denies: easy bruising or tender lymph nodes Meds/Allergies Home Medications and Allergies Home Medications Medication Instructions Recorded Confirmed Type Miralax 17 g PO DAILY 09/16/19 09/25/19 History Protonix 40 mg PO BID 09/16/19 09/25/19 History aspirin 81 mg PO DAILY 09/16/19 09/25/19 History atorvastatin [Lipitor] 40 mg PO QPM 09/16/19 09/25/19 History lactulose 10 g PO DAILY 09/16/19 09/25/19 History oxycodone [Roxicodone] 30 mg PO 5XD PRN MDD 150 mg 09/16/19 09/25/19 History protriptyline 10 mg PO DAILY 09/16/19 09/25/19 History clopidogrel [Plavix] 75 mg PO DAILY 09/23/19 09/25/19 History atorvastatin [Lipitor] 40 mg PO QPM 09/25/19 09/25/19 History metoprolol tartrate [Lopressor] 50 mg PO TID 09/25/19 09/25/19 History ziprasidone HCl [Geodon] 40 mg PO 0700 09/25/19 09/25/19 History Allergies Allergy/AdvReac Type Severity Reaction Status Date / Time fentanyl Allergy ADR-Diarrhe Verified 09/24/19 21:59 a Current Medications Current Medications Generic Name Dose Route Start Last Admin Trade Name Freq PRN Reason Stop Dose Admin Acetaminophen 650 mg 09/25/19 03:09 09/26/19 23:31 Tylenol PO 650 mg Q4H PRN Administration MILD PAIN Aspirin 81 mg 09/26/19 09:00 09/27/19 09:06 Aspirin Ec PO 81 mg DAILY [facility] Administration Atorvastatin Calcium 40 mg 09/25/19 18:00 09/26/19 16:41 Lipitor PO 40 mg QPM K[facility] Administration Clopidogrel Bisulfate 75 mg 09/26/19 09:00 09/27/19 09:06 Plavix PO 75 mg DAILY K[facility] Administration Diltiazem HCl 360 mg 09/25/19 15:33 09/27/19 09:07 Cardizem Cd (24hr) PO 360 mg DAILY [facility] Administration Doxepin HCl 50 mg 09/25/19 21:00 09/26/19 21:17 Sinequan PO 50 mg BEDTIME K[facility] Administration Haloperidol 5 mg 09/25/19 03:09 09/27/19 13:47 Haldol PO 5 mg Q4H PRN Administration AGITATION Hydroxyzine Pamoate 50 mg 09/25/19 03:09 09/27/19 13:48 Vistaril PO 50 mg Q6H PRN Administration ANXIETY Lactulose 10 gm 09/26/19 09:00 02/04/20 09:08 Constulose PO Not Given DAILY K[facility] Metoprolol Tartrate 50 mg 09/25/19 21:00 09/27/19 13:48 Lopressor PO 50 mg TID [facility] Administration Nicotine 1 patch 09/25/19 03:09 09/27/19 16:37 Nicoderm 21 Mg Patch TRANSDERMA 1 patch DAILY PRN Administration NICOTINE WITHDRAWAL Nicotine Polacrilex 2 mg 09/25/19 03:09 09/26/19 22:20 Nicorette BUCCAL 2 mg Q2H PRN Administration NICOTINE WITHDRAWAL Olanzapine 5 mg 09/25/19 03:09 09/26/19 15:50 Zyprexa Zydis PO 5 mg Q4H PRN Administration Agitation/Psychosis Pantoprazole Sodium 40 mg 09/25/19 18:00 09/27/19 09:06 Protonix PO 40 mg BID [facility] Administration Trazodone HCl 50 mg 09/25/19 03:09 09/26/19 20:35 Desyrel PO 50 mg BEDTIME PRN Administration SLEEP Ziprasidone 40 mg 09/25/19 17:00 09/27/19 06:19 Geodon PO 40 mg 0700,1700 [facility] Administration PFSH Acute PFSH: Statuses (acute, chronic, etc) shown below reflect problem list status as previously entered and may not be historically accurate Medical History (Updated 09/27/19 @ 17:01 by Bran Lynne MD) Arthritis (Acute) Surgical History (Updated 09/27/19 @ 16:53 by Bran Lynne MD) H/O Spinal surgery (Acute) History of appendectomy (Acute) Family History (Updated 09/27/19 @ 16:53 by Bran Lynne MD) Father CAD (coronary artery disease) Social History (Updated 09/27/19 @ 16:54 by Bran Lynne MD) Smoking and tobacco status: current some day smoker Alcohol intake: never Vitals/I&O/Wt Last Vital Signs Temp 98.2 F 09/27/19 14:00 Pulse 72 09/27/19 14:00 Resp 20 H 09/27/19 14:00 BP 160/82 09/27/19 14:00 Pulse Ox 100 09/27/19 14:00 Physical Exam Const: COMMON NORMALS: no apparent distress and oriented x3 Eye: COMMON NORMALS: EOMs intact bilaterally, conjunctivae normal and no scleral icterus CONJUNCTIVA: Yes conjunctivae normal Chest: COMMONS NORMALS: inspection of chest normal Resp: COMMON NORMALS: normal respiratory effort and clear to auscultation bilaterally AUSCULTATION: clear to auscultation bilaterally Cardio: COMMON NORMALS: regular rate, regular rhythm and S2 normal heart sound RATE: regular rate RHYTHM: regular rhythm HEART SOUNDS: S2 normal OTHER: No lower extremity edema GI: COMMON NORMALS: normal to inspection, nondistended, normoactive bowel sounds and soft to palpation; negative for non-tender PALPATION: Yes soft OTHER: Tender at epigastric area even to light palpation. Back/Pelvis: OTHER: Scoliosis with CVA tenderness bilaterally. Neuro: COMMON NORMALS: oriented x3 and no focal motor deficits Psych: ATTENTION/CONCENTRATION: Yes attention grossly intact INSIGHT: fair JUDGEMENT: fair Skin: OTHER: Multiple tattoos but otherwise no evidence of infection. A&P Assessment and plan (1) Urinary tract infection: Status: Acute Code(s): N39.0 - Urinary tract infection, site not specified (2) Benign prostatic hyperplasia: Status: Acute Code(s): N40.0 - Benign prostatic hyperplasia without lower urinary tract symptoms (3) Weight loss: Status: Acute Code(s): R63.4 - Abnormal weight loss Additional A&P Information Will start patient on Omnicef and Flomax. Obtain CT scan of abdomen/pelvis for further evaluation of epigastric area pain and weight loss. Patient to continue with Tylenol as needed for pain. Consult Attestations Medical Necessity Statement: Patient with psychosis/delirium and UTI requires close inpatient monitoring, treatment and evaluation. 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
[2019-09-27] MEDS: cefdinir 300 MG CAPSULE PO (16:58)
[2019-09-27] MEDS: atorvastatin 40 mg Tablet PO (16:58)
[2019-09-27 18:17] LABS: Bilirubin Urine Neg (NEGATIVE); Blood Urine Neg (Negative); Glucose Urine UA Norm (Normal); Ketones Urine Negative (Negative); Leukocyte Esterase Urine Negative (Negative); Nitrate Urine Negative (Negative); Protein Urine Neg (Negative); Specific Gravity, Urine 1.015 (1.005-1.030); Urine Appearance Clear (CLEAR); Urine Color Yellow (Yellow); Urobilinogen Urine Norm (Negative); pH Urine 6 (5-7)
[2019-09-27 18:18] LABS: Add Urine Culture? No; Bacteria Urine TRACE; Mucus Urine 2+; Oval Fat Bodies Urine 1+; WBC Urine RARE /hpf (0-5)
[2019-09-27] MEDS: doxepin 50 mg Capsule PO (21:05)
[2019-09-27] MEDS: iohexol 300 mg/mL 50 mL Btl 20 ML IV (21:30)
[2019-09-27] MEDS: iohexol 300 mg/mL 100 mL Btl 95 ML IV (21:48)
[2019-09-27 22:00] VITALS: BP 134/73; PULSE 74; RESP 19; TEMP 36.9; O2SAT 97
[2019-09-28] MEDS: acetaminophen 325 mg Tablet 650 MG PO ×2 (02:49→14:31)
[2019-09-28 06:00] VITALS: BP 133/79; PULSE 79; RESP 22; TEMP 36.6; O2SAT 98
[2019-09-28] MEDS: ziprasidone hcl 40 mg Capsule PO ×2 (06:02→17:17)
[2019-09-28] MEDS: aspirin 81 mg EC Tablet PO (08:57)
[2019-09-28] MEDS: dilTIAZem ER (24HR) 180 mg Capsule 360 MG PO (08:57)
[2019-09-28] MEDS: cefdinir 300 MG CAPSULE PO ×2 (08:57→17:17)
[2019-09-28] MEDS: pantoprazole DR 40 mg Tablet PO ×2 (08:58→17:17)
[2019-09-28] MEDS: tamsulosin 0.4 mg Capsule PO (08:58)
[2019-09-28] MEDS: metoprolol tartrate 50 mg Tablet PO ×3 (08:58→21:04)
[2019-09-28] MEDS: haloperidol 5 mg Tablet PO ×2 (08:58→17:18)
[2019-09-28] MEDS: clopidogrel 75 mg Tablet PO (08:58)
[2019-09-28 10:05] LABS: Basophils % 0.2 %; Eosinophils % 0.5 %; Hemoglobin 12.4 g/dL (11.7-16.6); Lymphocytes # 1.4 10^3/uL (0.8-4.8); Mean Corpuscular HGB Conc 31.8 g/dL (30.0-36.0); Mean Corpuscular Hemoglobin 28.5 pg (28.0-34.0); Mean Corpuscular Volume 89.7 fL (80-94); Mean Platelet Volume 8.5 fL (7.4-10.4); Monocytes # 0.8 10^3/uL (0.2-0.9); Monocytes % 12.1 %; Neutrophils % 64.7 %; Nucleated Red Blood Cells % 0 %; Platelet Count 485 10^3/cmm (130-400); Red Blood Count 4.35 10^6/uL (4.1-5.3); Red Cell Distribution Width 15.5 % (12.1-15.1); White Blood Count 6.2 10^3/uL (4.0-10.0)
[2019-09-28 10:20] LABS: Alanine Aminotransferase 14 U/L (0-41); Albumin Level 4.1 g/dL (3.5-5.2); Alkaline Phosphatase 83 IU/L (40-130); Anion Gap 13.9 (5-19); Aspartate Amino Transferase 17 U/L (0-40); Blood Urea Nitrogen 14 mg/dL (6-20); Calcium 9.8 mg/dL (8.5-10.5); Carbon Dioxide 23 mmol/L (22-29); Chloride 110 mmol/L (98-107); Globulin 3.5 g/dL (1.3-4.6); Glomerular Filtration Rate 115.4 mL/min (90-130); Glucose 89 mg/dL (65-115); Potassium 3.9 mmol/L (3.5-5.1); Sodium 143 mmol/L (136-145); Total Bilirubin 0.2 mg/dL (0.15-1.2); Total Protein 7.6 g/dL (6.6-8.7)
--- NOTE | 2019-09-28 13:00 | P.PN_ITS ---
Subjective Subjective: Interval history: Patient reports feeling much better today. Denies shortness of breath or chest pain. His white blood cell count normalized. His CT scan showed no acute findings. Vitals/I&O/Wt Last Vital Signs Temp 97.8 F 09/28/19 06:00 Pulse 79 09/28/19 06:00 Resp 22 H 09/28/19 06:00 BP 133/79 09/28/19 06:00 Pulse Ox 98 09/28/19 06:00 Physical Exam Const: COMMON NORMALS: no apparent distress and oriented x3 Resp: COMMON NORMALS: normal respiratory effort and clear to auscultation bilaterally AUSCULTATION: clear to auscultation bilaterally Cardio: COMMON NORMALS: regular rate, regular rhythm and S2 normal heart sound RATE: regular rate RHYTHM: regular rhythm HEART SOUNDS: S2 normal OTHER: No lower extremity edema GI: COMMON NORMALS: normal to inspection, nondistended, normoactive bowel sounds, soft to palpation and non-tender PALPATION: Yes soft Neuro: COMMON NORMALS: oriented x3 and no focal motor deficits Data : 09/28/19 09:55 09/28/19 09:55 A&P Assessment and plan (1) Urinary tract infection: Status: Acute Code(s): N39.0 - Urinary tract infection, site not specified (2) Benign prostatic hyperplasia: Status: Acute Code(s): N40.0 - Benign prostatic hyperplasia without lower urinary tract symptoms (3) Weight loss: Status: Acute Code(s): R63.4 - Abnormal weight loss Additional A&P Information Patient to be continued on Flomax upon discharge. Patient to be continued on Omnicef 300 mg twice daily for total of 2 weeks Recommend outpatient follow-up with primary care physician in the next 4 to 7 days post discharge. Given significant improvement I will sign off. Please call with any questions. Attestations Medical Necessity Statement*: As per primary service. Time Spent in Patient Care: less than 15 minutes Coding Level of Care Code Acute Director Of In Service Education for [facility] Fwd Diagnoses Urinary tract infection N39.0 Benign prostatic hyperplasia N40.0 Weight loss R63.4
[2019-09-28 14:00] VITALS: BP 129/79; PULSE 67; RESP 18; TEMP 36.9; O2SAT 100
--- NOTE | 2019-09-28 14:03 | P.PN_ITS ---
Subjective NPU Subjective: Interval history: Jose Alfredo presents today seeming significantly less irritable and hyper than yesterday. He reports feeling much better he denies any thoughts of staff members doing bad behaviors to animals or putting unknown object on the ceiling. We discussed a plan for what is next after discharge. We agreed to work with the social science analyst to see if any options exist for him or if he will need to return to his home. Hospitalist came by and made final recommendations and evaluated the labs which are improving. We discussed the results and the hospitalist recommendations with after hearing the risks, benefits and alternatives he was planning on following the recommendations. Mental Status Exam MSE Comments: This is a slender white male with a very significant sun with adequate dress and eye contact. No abnormal movements. Cooperative with exam in no acute distress. Speech was normal rate and volume. Mood described as pretty good, affect congruent. Thought process organized. Thought content: Patient denied any suicidal or homicidal ideations, there were no delusions reported or noted, he denied any auditory or visual hallucinations. Attention and concentration were more normal, and memory appears more reliable but none were formally tested. He is alert and oriented ?3. Insight and judgment were improving. Vitals/I&O/Wt Last Vital Signs Temp 97.8 F 09/28/19 06:00 Pulse 79 09/28/19 06:00 Resp 22 H 09/28/19 06:00 BP 133/79 09/28/19 06:00 Pulse Ox 98 09/28/19 06:00 Data NPU : 09/28/19 09:55 09/28/19 09:55 A&P Additional A&P Information This is a 59-year-old white male who presents with resolving delirium and laboratory studies showing resolving white counts on antibiotics and antipsychotics with clear improvement in his delirium. 1. Continue current medication. 2. Continue individual, group and milieu therapy. 3. Continue every 15 minute checks for safety. 4. Work with social work team to determine discharge plan and whether there are any reasonable assisted living options that would be attainable quickly. 5. Treat as indicated for likely infection. Involuntary Hold Information 96 Hour Hold: 96 Hour Involuntary Admission: No 96 Hour Hold Ending Date: 09/20/19 96 Hour Hold Ending Time: 23:26 21 Day Hold: 21 Day Hold Start Date: 09/21/19 21 Day Hold Start Time: 15:30 21 Day Hold End Date: 10/12/19 21 Day Hold End Time: 15:30 Attestations NPU Medical Necessity Statement*: Inpatient hospitalization is medically necessary and the clinically appropriate intervention at this time. We will monitor medications and titrate to effect. We'll work to determine whether options exist to get him into an assisted living environment, otherwise he will need to return to some other living arrangement while he awaits the referrals we make. Likely length of stay 1-2 days. 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
[2019-09-28] MEDS: atorvastatin 40 mg Tablet PO (17:17)
[2019-09-28] MEDS: nicotine 21 mg Patch 1 PATCH TRANSDERMA (17:18)
[2019-09-28] MEDS: doxepin 50 mg Capsule PO (21:05)
[2019-09-28 22:00] VITALS: BP 128/82; PULSE 69; RESP 18; TEMP 36.8; O2SAT 100
[2019-09-29] MEDS: acetaminophen 325 mg Tablet 650 MG PO ×3 (01:26→17:40)
[2019-09-29] MEDS: OLANZapine ODT 5 MG TABLET PO (05:35)
[2019-09-29 06:00] VITALS: BP 156/79; PULSE 69; RESP 19; TEMP 36.6; O2SAT 99
[2019-09-29] MEDS: pantoprazole DR 40 mg Tablet PO ×2 (08:50→17:31)
[2019-09-29] MEDS: metoprolol tartrate 50 mg Tablet PO ×3 (08:51→21:10)
[2019-09-29] MEDS: aspirin 81 mg EC Tablet PO (08:52)
[2019-09-29] MEDS: tamsulosin 0.4 mg Capsule PO (08:52)
[2019-09-29] MEDS: haloperidol 5 mg Tablet PO ×2 (08:52→17:31)
[2019-09-29] MEDS: clopidogrel 75 mg Tablet PO (08:54)
[2019-09-29] MEDS: ziprasidone hcl 40 mg Capsule PO ×2 (08:57→17:40)
[2019-09-29] MEDS: cefdinir 300 MG CAPSULE PO ×2 (08:58→17:32)
[2019-09-29] MEDS: dilTIAZem ER (24HR) 180 mg Capsule 360 MG PO (08:58)
--- NOTE | 2019-09-29 13:20 | P.PN_ITS ---
Subjective NPU Subjective: Interval history: Jose Alfredo presented today appearing to continue the path of wellness with less signs of confusion and delirium. He endorsed being better he was more cooperative. He was able to be off of one-to-one. He reports that he is working with the social work team to find appropriate discharge we discussed the importance of either discovering an option or putting referrals out there and having him work with his family resources while he waits on these opportunities to materialize. He reports that he is eating better and sleeping better. Mental Status Exam MSE Comments: This is a slender white male with a very significant sun with adequate dress and eye contact. No abnormal movements. Cooperative with exam in no acute distress. Speech was normal rate and volume. Mood described as better sir, affect congruent. Thought process more organized. Thought content: Patient denied any suicidal or homicidal ideations, there were no delusions reported or noted, he denied any auditory or visual hallucinations. Attention and concentration were more normal, and memory appears more reliable but none were formally tested. He is alert and oriented ?3. Insight and judgment were improving. Vitals/I&O/Wt Last Vital Signs Temperature 98, pulse 69, respirations 18, pulse ox 100%, blood pressure 129/77. Data NPU : 09/28/19 09:55 09/28/19 09:55 A&P Additional A&P Information This is a 59-year-old white male who presents with resolving delirium and laboratory studies showing resolving white counts on antibiotics and antipsychotics with clear improvement in his delirium. 1. Continue current medication. 2. Continue individual, group and milieu therapy. 3. Continue every 15 minute checks for safety. 4. Work with social work team to determine discharge plan and whether there are any reasonable assisted living options that would be attainable quickly. 5. Treat as directed by hospitalist. Involuntary Hold Information 96 Hour Hold: 96 Hour Involuntary Admission: No 96 Hour Hold Ending Date: 09/20/19 96 Hour Hold Ending Time: 23:26 21 Day Hold: 21 Day Hold Start Date: 09/21/19 21 Day Hold Start Time: 15:30 21 Day Hold End Date: 10/12/19 21 Day Hold End Time: 15:30 Attestations NPU Medical Necessity Statement*: Inpatient hospitalization is medically necessary and the clinically appropriate intervention at this time. We will monitor medications and titrate to effect. We'll work to determine whether options exist to get him into an assisted living environment, otherwise he will need to return to some other living arrangement while he awaits the referrals we make. Likely length of stay 1-2 days. 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
[2019-09-29 14:00] VITALS: BP 121/74; PULSE 73; RESP 20; TEMP 37.1; O2SAT 99
[2019-09-29] MEDS: hyDROXYzine 25 mg Capsule 50 MG PO (16:09)
[2019-09-29] MEDS: atorvastatin 40 mg Tablet PO (17:30)
--- NOTE | 2019-09-29 18:04 | PC.NURSE ---
Patient requested Tylenol for back pain. PRN Tylenol given per patient request.
[2019-09-29 20:21] VITALS: BP 129/77; PULSE 69; RESP 18; TEMP 36.6; O2SAT 100
[2019-09-29] MEDS: doxepin 50 mg Capsule PO (21:10)
[2019-09-30 05:14] VITALS: BP 140/73; PULSE 84; RESP 22; TEMP 36.7; O2SAT 99
[2019-09-30] MEDS: ziprasidone hcl 40 mg Capsule PO (07:53)
[2019-09-30] MEDS: acetaminophen 325 mg Tablet 650 MG PO (08:58)
--- NOTE | 2019-09-30 09:01 | PC.SOCIAL ---
Important Medicare Message Reviewed page 2 Important Medicare Message with patient. Verbalized understanding and signed page 2. Original to patient and copy in chart.
[2019-09-30] MEDS: cefdinir 300 MG CAPSULE PO (09:16)
[2019-09-30] MEDS: tamsulosin 0.4 mg Capsule PO (09:16)
[2019-09-30] MEDS: aspirin 81 mg EC Tablet PO (09:16)
[2019-09-30] MEDS: metoprolol tartrate 50 mg Tablet PO (09:16)
[2019-09-30] MEDS: haloperidol 5 mg Tablet PO (09:16)
[2019-09-30] MEDS: dilTIAZem ER (24HR) 180 mg Capsule 360 MG PO (09:16)
[2019-09-30] MEDS: pantoprazole DR 40 mg Tablet PO (09:16)
[2019-09-30] MEDS: clopidogrel 75 mg Tablet PO (09:17)
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
[2019-09-30] MEDS: nicotine 21 mg Patch 1 PATCH TRANSDERMA (12:37)
[2019-09-30] MEDS: hyDROXYzine 25 mg Capsule 50 MG PO (12:43)
--- NOTE | 2019-09-30 12:43 | PC.NURSE ---
PRN VISTARIL VISTARIL 50MG PO PER PT C/O ANXIETY. WILL CONTINUE TO MONITOR FOR MEDICATION EFFECTIVENESS.
[2019-09-30 12:47] VITALS: BP 140/73; PULSE 84; RESP 22; TEMP 36.7; O2SAT 99
== END 2019-09-30 13:58 | disposition home or self-care (01) | DRG 690 ==
LOC: ER 23:49 → NP 09-25 02:26
PROVIDERS: Internal Medicine; Nurse Practitioner Family; Admitting Provider Psychiatry & Neurology Psychiatry; Emergency Provider Emergency Medicine; Family Provider Family Medicine; PCP Family Medicine; Visit Provider Psychiatry & Neurology Psychiatry
DX: N39.0 Urinary tract infection, site not specified (principal); F23 Brief psychotic disorder; Z78.1 Physical restraint status; F12.90 Cannabis use, unspecified, uncomplicated; R41.0 Disorientation, unspecified; F20.9 Schizophrenia, unspecified
CPT/HCPCS: 12345; 36415; 72040; 72072; 73130; 74177; 80053; 80307; 81001; 85025; 99282; Q9967

== ENCOUNTER 2020-07-06 12:44 | Emergency (ER) | payer MEDICARE, SELFPAY ==
[2020-07-06 12:59] VITALS: BP 148/83; PULSE 78; RESP 18; TEMP 37; O2SAT 99; BMI 23.5
--- NOTE | 2020-07-06 13:58 | XR_ITS ---
WS: [id number] Chest 2 views, 07/06/2020 Clinical Data: cp Comparison: Portable chest, 01/10/2009. Findings: No nodules, masses or effusions are seen. The heart is normal. The pulmonary vascularity is not increased. No pneumonia or pneumothorax is seen. The aortic arch shows calcification and mild to rtuosity. The diaphragms are flattened. The patient is had anterior and posterior cervical disc fusio ns. There are healed left second through seventh rib fractures XR/XR chest 2V* [id number] Impression: Atherosclerosis and hyperinflation.
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
[2020-07-06 14:31] LABS: Basophils % 0.2 %; Eosinophils % 0.1 %; Hematocrit 45.5 % (42.0-52.0); Hemoglobin 14.6 g/dL (11.7-16.6); Lymphocytes # 2.1 10^3/uL (0.8-4.8); Lymphocytes % 15.3 %; Mean Corpuscular HGB Conc 32.1 g/dL (30.0-36.0); Mean Corpuscular Hemoglobin 28.7 pg (28.0-34.0); Mean Corpuscular Volume 89.4 fL (80-94); Mean Platelet Volume 8.6 fL (7.4-10.4); Monocytes # 0.7 10^3/uL (0.2-0.9); Neutrophils # 10.54 10^3/uL (1.8-7.7); Neutrophils % 78.9 %; Nucleated Red Blood Cells % 0 %; Platelet Count 508 10^3/cmm (130-400); Red Blood Count 5.09 10^6/uL (4.1-5.3); Red Cell Distribution Width 16.5 % (12.1-15.1); White Blood Count 13.4 10^3/uL (4.0-10.0)
[2020-07-06 14:48] LABS: Alanine Aminotransferase 17 U/L (0-41); Albumin Level 4.7 g/dL (3.5-5.2); Alkaline Phosphatase 144 IU/L (40-130); Aspartate Amino Transferase 27 U/L (0-40); Blood Urea Nitrogen 16 mg/dL (8-23); Calcium 9.8 mg/dL (8.5-10.5); Carbon Dioxide 27 mmol/L (22-29); Chloride 104 mmol/L (98-107); Globulin 2.9 g/dL (1.3-4.6); Glomerular Filtration Rate 137.4 mL/min (90-130); Glucose 107 mg/dL (65-115); Osmolality Calculated 294 mOsm/kg (285-295); Sodium 141 mmol/L (136-145); Total Bilirubin 0.3 mg/dL (0.15-1.2); Total Protein 7.6 g/dL (6.6-8.7)
[2020-07-06 14:49] LABS: Creatinine Clr Calc Pharmacy 148.5844
[2020-07-06 14:50] LABS: Anion Gap 13.7 (5-19); Potassium 3.7 mmol/L (3.5-5.1)
[2020-07-06 14:55] LABS: Troponin(5th) Baseline 7 ng/L (0-15)
[2020-07-06] MEDS: HYDROcodone-acetaminophen 10-325 mg Tablet 1 TAB PO (15:00)
[2020-07-06] MEDS: diazePAM 5 mg Tablet PO (15:44)
[2020-07-06] MEDS: dexamethasone 4 mg/mL INJ 10 MG IVP (15:44)
[2020-07-06] MEDS: ketorolac 30 mg/mL INJ IVP (15:44)
[2020-07-06 15:59] LABS: Troponin 5 2HR 6.48 ng/L (0-15)
[2020-07-06 16:05] LABS: Troponin 5 2HR Delta -0.52 ABS# (0-10)
[2020-07-06 16:14] VITALS: BP 138/74; PULSE 75; RESP 18; O2SAT 97
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
--- NOTE | 2020-07-09 12:53 | DCPLANNER ---
manager mechanical maintenance had message to schedule a follow up appointment for patient with neurosurgery, after speaking with patient, he stated that mental health case manager could refer patient to Dr. Negrete at the ortho clinic. manager mechanical maintenance called the ortho clinic, spoke with Jaimee, gave clinic patients information. Clinic will call patient with appointment information.
--- NOTE | 2020-07-10 08:43 | DCPLANNER ---
Patient has a follow up appointment scheduled for Thursday, July 12, 2020 at 9:[address] Negrete. Clinic will call patient with appointment information.
--- NOTE | 2020-08-24 12:37 | DCPLANNER ---
Patient had a follow up appointment scheduled for ortho on 07.12.20 - patient did attend appointment.
== END 2020-07-06 16:56 | disposition home or self-care (01) ==
PROVIDERS: Emergency Provider Registered Nurse; Family Provider Family Medicine; PCP Family Medicine
DX: S39.012A Strain of muscle, fascia and tendon of lower back, initial encounter (principal); Z79.82 Long term (current) use of aspirin; Z79.02 Long term (current) use of antithrombotics/antiplatelets; I25.10 Atherosclerotic heart disease of native coronary artery without angina pectoris; I10 Essential (primary) hypertension; F17.210 Nicotine dependence, cigarettes, uncomplicated; V89.2XXA Person injured in unspecified motor-vehicle accident, traffic, initial encounter
CPT/HCPCS: 12345; 71046; 72131; 80053; 84484; 85025; 96374; 96375; 99281; 99283; J1100; J1885

== ENCOUNTER → 2020-07-13 09:25 | Outpatient (BNVA) | payer MEDICARE, SELFPAY | PROVIDERS: Family Provider Family Medicine; PCP Family Medicine; Referring Provider Registered Nurse; Visit Provider Orthopaedic Surgery | DX: S39.012A Strain of muscle, fascia and tendon of lower back, initial encounter (principal) | CPT/HCPCS: 72114 ==

== ENCOUNTER 2020-09-04 15:11 | Outpatient (CLI) | payer MEDICARE, SELFPAY ==
--- NOTE | 2020-09-04 15:16 | MR_ITS ---
WS: [id number] MRI LUMBAR SPINE NONCONTRAST TECHNIQUE: Sagittal T1, T2 and STIR imaging. Axial T1 and T2 imaging. CLINICAL INFORMATION: SPONDYLOLYSIS LUMBAR REGION COMPARISON: MRI 2014 FINDINGS: Mild lumbar curve. No acute compression. No high-grade central canal stenosis. Slight retrolisthesis L2 on L3 and L3 on L4. L1-L2: Mild annular bulging. Spinal canal and foramen are patent. L2-L3: Mild annular bulging. Spinal canal and foramen are patent. Mild facet arthropathy. L3-L4: Mild annular bulging with slight effacement of the ventral thecal sac. Slight impingement on t he subarticular recess left greater than right. Moderate left and mild right foraminal narrowing. L4-L5: Mild disc bulging with osteophytic ridging. Moderate right and mild left foraminal narrowing. Moderate facet arthropathy. L5-S1: Left eccentric disc bulging with mild left and no significant right foraminal narrowing. Moder ate facet arthropathy. Bilateral renal cysts. Hemorrhagic right renal lesion. Additional partially visualized 1.8 cm right r enal lesion with internal septations may represent a complex cyst or solid lesion. This can be follow ed up with ultrasound. MR/MR lumbar spine wo con* [id number] IMPRESSION: 1. Mild lumbar curve. No acute compression. No high-grade central canal stenos is. 2. Left frontal protrusion L3-4 with contact of the exiting left L3 nerve root and moderate left foraminal narrowing. 3. Right eccentric disc osteophyte protrusion slightly impinges the exiting ri ght L4 nerve root with moderate right foraminal narrowing. 4. Moderate facet arthropathy L3-L4 and L4-L5. 5. Nonspecific right renal lesions. Recommend further evaluation with ultrasou nd.
== END 2020-09-04 15:12 | disposition home or self-care (01) ==
PROVIDERS: PCP Family Medicine; Visit Provider Neurological Surgery
DX: M43.06 Spondylolysis, lumbar region (principal); N28.9 Disorder of kidney and ureter, unspecified; M47.816 Spondylosis without myelopathy or radiculopathy, lumbar region; M25.78 Osteophyte, vertebrae; M51.26 Other intervertebral disc displacement, lumbar region
CPT/HCPCS: 72148

== ENCOUNTER 2020-09-20 15:04 | Outpatient (CLI) | payer MEDICARE, SELFPAY ==
--- NOTE | 2020-09-20 15:45 | USCV_ITS ---
Jose Alfredo Page Age: 60 Gender: M : 1960 Exam Date: 09/20/2020 15:38 Ordering Phys: Pedro Luis Callejas MD ([email or web address]) Technologist: Sathish Cosme [place] [facility] [place]: SOB BP: 145 / 82 HR: 86 Rhythm: Sinus Technical Quality: Adequate MEASUREMENTS (Male / Female) Normal Values 2D ECHO LV Diastolic Diameter PLAX 3.7 cm 4.2 - 5.9 / 3.9 - 5.3 cm LV Systolic Diameter PLAX 2.4 cm IVS Diastolic Thickness 1.9 cm 0.6 - 1.0 / 0.6 - 0.9 cm IVS Systolic Thickness 2.3 cm LVPW Diastolic Thickness 1.4 cm 0.6 - 1.0 / 0.6 - 0.9 cm LVPW Systolic Thickness 1.9 cm LVOT Diameter 2.0 cm LV Ejection Fraction 2D Teich 61.5 % LV Ejection Fraction MOD 2C 79.2 % LV Ejection Fraction 2C AL 81.1 % LA Diameter 3.1 cm LA Width 3.8 cm LA Height 4.0 cm RA Width 3.3 cm RA Height 3.8 cm Aorta at Sinotubular Diameter 2.1 cm M-MODE LV Diastolic Diameter MM 3.4 cm 4.2 - 5.9 / 3.9 - 5.3 cm LV Systolic Diameter MM 1.6 cm LV Ejection Fraction MM Teich 83.9 % IVS Diastolic Thickness MM 1.5 cm 0.6 - 1.0 / 0.6 - 0.9 cm IVS Systolic Thickness MM 2.4 cm LVPW Diastolic Thickness MM 2.1 cm 0.6 - 1.0 / 0.6 - 0.9 cm LVPW Systolic Thickness MM 2.3 cm Aortic Annulus Diameter 3.5 cm LA Ao Ratio MM 0.9 MV E Point Septal Separation 0.6 cm DOPPLER AV Peak Velocity 191.0 cm/s LVOT Peak Velocity 135.0 cm/s AV Area Cont Eq vti 1.9 cm squared AV Area Cont Eq pk 2.3 cm squared MV Area PHT 3.9 cm squared Mitral E to A Ratio 0.6 MV E' Velocity 30.4 cm/s Mitral E to MV E' Ratio 4.9 Mitral E to LV E' Lateral Ratio 3.7 Mitral E to LV E' Septal Ratio 7.4 TR Peak Velocity 124.0 cm/s TR Peak Gradient 6.2 mmHg Right Atrial Pressure 3.0 mmHg Pulmonary Artery Systolic Pressu 9.2 mmHg PV Peak Velocity 111.0 cm/s RV Acceleration Time 0.1 s RV Ejection Time 0.2 s RV AcT/ET 0.4 FINDINGS Left Ventricle Normal left ventricular cavity size. Normal left ventricular systolic function. No regional wall motion abnormalities. Left ventricular ejection fraction is estimated at 60 %. Grade I/IV diastolic dysfunction (abnormal relaxation filling pattern), normal to mildly elevated filling pressures. Right Ventricle The right ventricle is normal in size and function. Right Atrium The right atrium is normal in size. Left Atrium The left atrium is normal in size. Mitral Valve Moderately thickened mitral valve. Moderate mitral annular calcification. No mitral valve stenosis. No mitral valve regurgitation. Aortic Valve Moderate aortic valve calcification. No aortic valve stenosis. No aortic valve regurgitation. Tricuspid Valve Structurally normal tricuspid valve without significant stenosis or regurgitation. Pulmonary artery systolic pressure is normal. Pulmonic Valve Structurally normal pulmonic valve without significant stenosis. There is no pulmonic regurgitation. Pericardium Normal pericardium without effusion. Aorta Normal ascending aorta dimension. CONCLUSIONS 1-Normal left ventricular cavity size. Normal left ventricular systolic function. No regional wall motion abnormalities. Left ventricular ejection fraction is estimated at 60 %. Grade I/IV diastolic dysfunction (abnormal relaxation filling pattern), normal to mildly elevated filling pressures. 2-Moderately thickened mitral valve. Moderate mitral annular calcification. No mitral valve stenosis. No mitral valve regurgitation. 3-Moderate aortic valve calcification. No aortic valve stenosis. No aortic valve regurgitation. 4-There is no pericardial effusion. 5-Pulmonary artery systolic pressure is within normal limits. 6-Right atrial pressure is around 5 mm of mercury. 7-No significant change since the prior echocardiogram study of 12/23/2013. Pedro Luis Callejas MD (Electronically Signed) Final Date: 20 September 2020 18:57 S
== END 2020-09-20 15:05 | disposition home or self-care (01) ==
LOC: US 15:11
PROVIDERS: PCP Family Medicine; Visit Provider Internal Medicine Cardiovascular Disease
DX: R06.02 Shortness of breath (principal); I08.0 Rheumatic disorders of both mitral and aortic valves
CPT/HCPCS: 93306

== ENCOUNTER → 2020-11-21 11:35 | Outpatient (BNVA) | payer MEDICARE, SELFPAY | PROVIDERS: PCP Family Medicine; Visit Provider Orthopaedic Surgery | DX: M48.062 Spinal stenosis, lumbar region with neurogenic claudication (principal) | CPT/HCPCS: 87635 ==

== ENCOUNTER 2020-11-26 19:11 | Observation (INO) | payer MEDICARE, SELFPAY ==
[2020-11-26] VITALS (16 sets, daily range): BP systolic 149–182; BP diastolic 87–136; PULSE 60–117; RESP 10–25; TEMP 36.2–36.8; O2SAT 94–100
--- NOTE | 2020-11-26 | XR_ITS ---
WS: [id number] Lumbar spine, C-arm fluoroscopy AP and lateral, 11/26/2020 Clinical Data: lumbar fusion Comparison: Lumbar spine, 07/13/2020. Findings: There are bilateral pedicle screws at L2, L3 and L4 with connecting rods. There are disc spacers at L 2-L3 and L3-L4. XR/XR lumbar spine 2-3V* [id number] Impression: Posterior lumbar fusion L2-L5.
[2020-11-26] MEDS: sodium chloride 0.9% 1,000 ML 30 ML IV (08:40)
--- NOTE | 2020-11-26 10:15 | ANES.PREANE2 ---
Pre-Anesthetic Assessment Pre-Anesthetic Assessment: Height/Weight: Height 1.85 m Weight 85.729 kg Temp Pulse Resp BP Pulse Ox 97.2 F L 60 16 153/87 98 11/26/20 08:27 11/26/20 08:27 11/26/20 08:27 11/26/20 08:27 11/26/20 08:27 Preop Diagnosis: Lumbar stenosis with Spondylolisthesis L2/3 Proposed Procedure: Operation Date: 11/26/20 10:15 Proposed Procedures p L2/3 L3/4 PLIF M43.16 M48.06 [id number], 34513, 07308, 67683, 26871(Not Applicable) - Camden Negrete DO Familial anesthetic complications: None Was Beta Angelo taken within 24 hours: Yes Was Clonidine taken within 24 hours: N/A Last intake: Intake Last Liquid Date 11/25/20 Last Liquid Time 20:00 Last Solid Date 11/25/20 Last Solid Time 20:00 Social: Social History: Alcohol and Tobacco Comment: 2 beers a night Exam: Pre-Anes Outpt Exam: alert, oriented x 3, clear to auscultation bilaterally and regular rate & rhythm Airway: MP: 4 Dentition: Full Additional comments: full sun Pulmonary: Pulmonary: Sleep apnea CV/HEM: CV/HEM: CAD (3 stents > 1 year ago) and HTN Comments: able to achieve > 4 METS w/ out Chest pain or SOB Musc/skel: Musc/skel: Lower Back Pain Neuropsych: Neuropsych: Anxiety Anesthetic Plan: ASA status: 3 Anesthesia: General Risk of > 500 ml blood loss (7ml/kg in children): No Meds/Allergies Current Medications: Current Medications Generic Name Dose Route Start Last Admin Trade Name Freq PRN Reason Stop Dose Admin Sodium Chloride 1,000 mls @ 30 ml s/hr 11/26/20 08:15 11/26/20 08:40 Sodium Chloride 0.9% IV 11/27/20 08:14 30 mls/hr .Q24H [place] Administration PFSH Anesthesia PFSH: Medical History Arthritis CAD (coronary artery disease) Delirium Essential hypertension Surgical History H/O Spinal surgery History of appendectomy Family History Father CAD (coronary artery disease) Social History Smoking and tobacco status: current some day smoker Alcohol intake: never Data Anesthesia Cardiac Studies: No Data to Display
[2020-11-26] MEDS: HYDROmorphone 1 mg/mL INJ 1 mL 0.25 MG IVP (12:22)
--- NOTE | 2020-11-26 14:07 | W.PM.OPSUD ---
Surgery/Procedure H&P Update DATE OF PROCEDURE: November 26, 2020 DATE H&P PERFORMED: 11/26/20 PREOP DIAGNOSIS: Lumbar stenosis with Spondylolisthesis L2/3 PLANNED PROCEDURE: Operation Date: 11/26/20 10:15 Proposed Procedures p L2/3 L3/4 PLIF M43.16 M48.06 [id number], [id number], 57421, 45869, 51655(Not Applicable) - Camden Negrete, DO
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
[2020-11-26] MEDS: heparin, porcine 1,000 unit/mL INJ 10 mL 10000 UNIT IRRIGATION (15:58)
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
--- NOTE | 2020-11-26 20:09 | SUR.PHASEI ---
2000 BILATERAL PEDAL PULSES PALPATED, CAP REFILL <3 SEC
--- NOTE | 2020-11-26 20:45 | ANE.PACU2 ---
Inpatient post-anesthesia follow up: Airway intact: Yes Vital signs: Temperature 97.8 F Pulse Rate 99 Respiratory Rate 15 Blood Pressure 160/97 Pulse Oximetry 96 Oxygen Delivery Me thod Room Air Oxygen Flow Rate 8 Fraction of Inspir ed Oxygen Hydration adequate: Yes Nausea and vomiting: No Pain level: 4 Mental status: Baseline
[2020-11-26] MEDS: doxepin 50 mg Capsule PO (21:23)
[2020-11-26] MEDS: lactated ringers 1,000 ML 90 ML IV (21:23)
[2020-11-26] MEDS: thiamine 100 mg Tablet PO (23:32)
[2020-11-26] MEDS: HYDROmorphone 1 mg/mL INJ 1 mL IVP (23:33)
[2020-11-27] VITALS: BP 150/114; PULSE 101; RESP 18; TEMP 36.6; O2SAT 98
--- NOTE | 2020-11-27 | SCC_ITS ---
Procedure Done: 1. L2/3 Interbody fusion with posterolateral fusion 2. L3/4 Interbody fusion with posterolateral fusion 3. Instrumentation L2-L4 4. Cage at L2/3 5. Cage at L3/4 6. Laminectomy L2 for decompression of nerve 7. Laminectomy L3 for decompression of nerve 8. use of autograft from same incision 9. allograft 10. Bone marrow aspirate from separate incision in iliac wing on right 15 seconds of fluoroscopic guidance, for a cumulative dose of 21.1 mGy, was provided to Dr. Negrete by the radiology department. C-arm images of the lumbar spine were saved for the patient's permanent record. [facility]
[2020-11-27] MEDS: HYDROcodone-acetaminophen 5-325 mg Tablet PO ×2 (00:08→08:04)
[2020-11-27] MEDS: ketorolac 30 mg/mL INJ IVP ×2 (01:07→10:39)
[2020-11-27] MEDS: cyclobenzaprine 10 mg Tablet PO (01:27)
[2020-11-27] MEDS: acetaminophen 325 mg Tablet 650 MG PO (01:27)
[2020-11-27] MEDS: LORazepam 2 mg Tablet PO (01:28)
--- NOTE | 2020-11-27 01:52 | PC.NURSE ---
Time temp hr rr 02 bp 20:56 98.1 106 16 94 176/100 21:55 98.1 101 16 97 154/92 22.43 98.3 102 17 97 150/114 24:00 97.9 100 16 97 155/100
--- NOTE | 2020-11-27 02:47 | PC.NURSE ---
Addendum entered by Taylor Miranda LPN 11/27/20 02:49: this was 0200 rounding Original Note: pt on left side, pt can be heard snoring from hallway
--- NOTE | 2020-11-27 02:50 | PC.NURSE ---
pt was sleeping on left side, snoring (audible from hallway). this nurse entered to hang antibiotic, pt still snoring. pt heard the beep from computer scanner and woke up. this nurse asked if pt's pt was any better. pt stated pain was a 10. pt went back to sleep, snoring once nurse left bedside.
[2020-11-27 04:31] VITALS: BP 136/84; PULSE 82; RESP 18; TEMP 36.7; O2SAT 98
--- NOTE | 2020-11-27 06:29 | PC.NURSE ---
this nurse woke pt up to administer lovenox. pt stated he just wanted to sleep. pt refused lovenox. this nurse asked pt about pain level. pt stated pain was a 7 but tolerable and he just wants to sleep now
[2020-11-27 07:06] VITALS: BP 161/94; PULSE 85; RESP 17; TEMP 36.6; O2SAT 97
--- NOTE | 2020-11-27 07:29 | P.PN_ITS ---
Subjective Subjective: Interval history: Patient was resting comfortably this morning when we woke him up his pain was well controlled. He is a 5-5 strength bilateral lower extremities and appears to be quite comfortable. Vitals/I&O/Wt Last Vital Signs Temp 97.9 F 11/27/20 07:06 Pulse 85 11/27/20 07:06 Resp 17 11/27/20 07:06 BP 161/94 11/27/20 07:06 Pulse Ox 97 11/27/20 07:06 11/26/20 11/27/20 11/27/20 22:59 06:59 14:59 Intake Total 500 / 1500 530 / 2030 Output Total 1000 / 1000 1220 / 2220 Balance -500 / 500 -690 / -190 Physical Exam Narrative: EXAM NARRATIVE: Patient's has 5-5 strength bilateral lower extremities sensation intact. Urinary Catheter Management^: F: Cath Placed During This Visit: yes, but has since been removed by the nurse Urinary Catheter Date of Insertion: 11/26/20 Urinary Catheter Time of Insertion: 15:20 Date Urinary Catheter Removed: 11/26/20 Time Urinary Catheter Discontinued: 19:19 A&P Assessment and plan (1) Lumbar stenosis with neurogenic claudication: Patient is postop day #1 L2-3 L3-4 lumbar fusion. Plan is to discharge him today he is to follow-up in clinic in 2 weeks. 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
--- NOTE | 2020-11-27 07:36 | PM.OP ---
Operative Report Date of procedure: November 27, 2020 Pre-op Diagnosis: Lumbar stenosis with Spondylolisthesis L2/3, L3/4 Post-op diagnosis: same Procedure Done: 1. L2/3 Interbody fusion with posterolateral fusion 2. L3/4 Interbody fusion with posterolateral fusion 3. Instrumentation L2-L4 4. Cage at L2/3 5. Cage at L3/4 6. Laminectomy L2 for decompression of nerve 7. Laminectomy L3 for decompression of nerve 8. use of autograft from same incision 9. allograft 10. Bone marrow aspirate from separate incision in iliac wing on right Anesthesia: General Estimated blood loss (mL): 700 Condition: stable Disposition: PACU Procedure: 1. L2/3 Interbody fusion with posterolateral fusion 2. L3/4 Interbody fusion with posterolateral fusion 3. Instrumentation L2-L4 4. Cage at L2/3 5. Cage at L3/4 6. Laminectomy L2 for decompression of nerve 7. Laminectomy L3 for decompression of nerve 8. use of autograft from same incision 9. allograft 10. Bone marrow aspirate from separate incision in iliac wing on right Patient is brought to the operative suite. After undergoing anesthesia, the patient had neuro monitoring attached. Patient was then placed in the prone position on the Andrei table. All areas of impingement were well-padded. Patient was then prepped and draped in the normal sterile fashion. Skin incision was then made over the L2-4 space. Subperiosteal dissection was made out to the transverse processes of L2 to L4. Once the exposure was complete attention was then brought to placing the pedicle screws. Prior to placing the pedicle screws the MoBeam bone marrow aspirate kit was used to aspirate bone marrow aspirate from the Right iliac crest. This was done by using the sharp probe to open up the bone. Aspiration was performed and then the blunt probe was then used to dissect down to through the bone tunnel. An aspirating well drawn back a millimeter approximately 20 cc of bone marrow aspirate was used. Admixed with the allograft and autograft bone that will be used. The technique for placing the pedicle screws was to use a drill followed by the gearshift probe. Followed by the ball probe to feel the superior inferior medial lateral tucker of the pedicles. Then placement of the screws. Was done at each pedicle. Screws were placed at L2 bilaterally and L3 bilaterally and L4 bilaterally. Next attention was brought to performing the laminectomy of L2. This was done using the high-speed bur Kerrisons and curettes. Once the lamina was removed and then attention was brought to performing a partial facetectomy on the contralateral side. This was done again using the high-speed bur curettes and Kerrisons. The ligamentum flavum was taken down bilaterally from L2 to L3. Attention was then brought to the facet on the ipsilateral side. The facet was taken down. The L3 nerve was decompressed as it passed around the L3 pedicle. The laminectomy was done for purposes of decompressing the nerve as well as placement of the cage. The L2 nerve was identified as it traversed through the L2/3 foramen. The thecal sac was identified and retracted. The L2/3 disc base was identified. Using a knife the disc base was opened. And then sequential belkis were placed. The first shaver was a 6 and the last shaver was a 10. Using a pituitary and down going curette the endplates were scraped and disc material was removed from the space. Once adequate decompression of the disc base was felt to be had. Osteoamp sponge was packed into the anterior aspect of the disc base. Then a size 10 cage from [employer] was placed after packing osteoamp into the cage. While placing the cage the thecal sac and L3 nerve was protected. C arm was used to ensure that the cages placed in the appropriate position. Next attention was brought to performing the laminectomy of L3. This was done using the high-speed bur Kerrisons and curettes. Once the lamina was removed and then attention was brought to performing a partial facetectomy on the contralateral side. This was done again using the high-speed bur curettes and Kerrisons. The ligamentum flavum was taken down bilaterally from L3 to L4. Attention was then brought to the facet on the ipsilateral side. The facet was taken down. The L4 nerve was decompressed as it passed around the L4 pedicle. The laminectomy was done for purposes of decompressing the nerve as well as placement of the cage. The L3 nerve was identified as it traversed through the L3/4 foramen. The thecal sac was identified and retracted. The L3/4 disc base was identified. Using a knife the disc base was opened. And then sequential belkis were placed. The first shaver was a 6 and the last shaver was a 8. Using a pituitary and down going curette the endplates were scraped and disc material was removed from the space. Once adequate decompression of the disc base was felt to be had. Osteoamp sponge was packed into the anterior aspect of the disc base. Then a size 10 cage from [employer] was placed after packing osteoamp into the cage. While placing the cage the thecal sac and L3 nerve was protected. C arm was used to ensure that the cages placed in the appropriate position. Attention was then brought to attaching the rods to the screws placed in the L2-4 bilaterally. Caps were torqued into position. Locking the construct in place. Wound was copiously irrigated and then attention was brought to decorticating the facets and transverse processes laterally. Bone that was taken down from the lamina was used along with osteoamp fibers and sponges were packed into the lateral gutters along the facet joints. This was done bilaterally. Wound was then closed in a layered fashion starting with the thoracolumbar fascia. 0-vicryl was used the sub cutaneous tissue was closed with 2-0 vicryl and skin with O- stratifix and Nylon were used steril dressing was applied. Patient was then placed in the supine position. The endotracheal tube was removed and patient was transferred to the PACU in stable condition.
[2020-11-27] MEDS: mirtazapine 30 mg Tablet PO (08:03)
[2020-11-27] MEDS: dilTIAZem ER (24HR) 180 mg Capsule 360 MG PO (08:03)
--- NOTE | 2020-11-27 08:03 | P.DS_ITS ---
Discharge Providers Date of Admission: 11/26/20 19:11 Date of Discharge: November 27, 2020 Attending Provider at Admission: Camden Negrete DO Attending Provider at Discharge: Camden Negrete DO Primary Care Provider: Magdalena Reveles DO Diagnoses at Discharge Discharge Diagnosis (1) Lumbar stenosis with neurogenic claudication: Status: Acute Reason for Visit Reason for Visit: L2/3 L3/4 PLIF [id number], [id number], [id number], [id number], 2 Hospital Course Hospital Course Patient was admitted on 11/26/2020 had an L2-L4 posterior lumbar interbody fusion procedure done. Patient did well tolerated pain through the night and will be discharged home today on 11/27/2020. Physical Exam Urinary Catheter Management^: F: Cath Placed During This Visit: yes, but has since been removed by the nurse Urinary Catheter Date of Insertion: 11/26/20 Urinary Catheter Time of Insertion: 15:20 Date Urinary Catheter Removed: 11/26/20 Time Urinary Catheter Discontinued: 19:19 Discharge Data Data Completed and Pending: Pending at discharge Category Date Time Status C-arm Fluoroscopy 66675 Routine Exams 11/26/20 08:01 Ordered Vitals: Last Vital Signs Temp 97.9 F 11/27/20 07:06 Pulse 85 11/27/20 07:06 Resp 17 11/27/20 07:06 BP 161/94 11/27/20 07:06 Pulse Ox 97 11/27/20 07:06 Discharge Plan Discharge Patient Disposition: Home Condition: Stable Prescriptions: New hydrocodone-acetaminophen 5-325 mg tablet 1 - 2 tab PO .Q4-6H PRN (Reason: pain) 7 Days Qty: 40 RF: 0 Continued mirtazapine 30 mg tablet 30 mg PO DAILY RF: 0 trazodone 50 mg tablet 50 mg PO .bedtime PRN (Reason: Sleep) RF: 0 (DME) E0748 Bone growth Stimulator See Rx Instructions .Route .MEDSUPPLY Qty: 1 RF: 0 Protonix 40 mg 40 mg PO BID RF: 0 aspirin 81 mg 81 mg PO DAILY RF: 0 clopidogrel [Plavix] 75 mg tablet 75 mg PO DAILY RF: 0 doxepin 50 mg Capsule 50 mg PO BEDTIME 30 Days Qty: 30 RF: 1 diltiazem HCl [DILT-XR] 180 mg Capsule,Ext.Rel 24h Degradable 360 mg PO DAILY 30 Days Qty: 60 RF: 1 hydroxyzine HCl 25 mg tablet 25 mg PO Q8H PRN (Reason: anxiety) Qty: 20 RF: 0 ziprasidone HCl 40 mg Capsule 40 mg PO 0800,1700 30 Days Qty: 60 RF: 1 Lopressor 50 mg tablet 50 mg PO BID RF: 0 cyclobenzaprine 10 mg tablet 10 mg PO BID PRN (Reason: muscle spasm) Qty: 15 RF: 0 hydromorphone 8 mg tablet 8 mg PO DAILY PRN (Reason: Pain) RF: 0 lorazepam 2 mg tablet 2 mg PO QID PRN (Reason: Anxiety) RF: 0 amoxicillin-pot clavulanate 500-125 mg tablet 1 tab PO BID RF: 0 Discharge Orders: Discharge Order (Routine); Ordered 11/27/20 Ordered By: Camden Negrete Referrals: Camden Negrete, DO [Physician] - Discharge Diet: Advance as tolerated and Regular Discharge Activity: Limit activity as instructed Activity Restrictions/Additional Instructions: Thank you for [facility] for your care! The following is a list of instructions, from your provider, to follow upon your discharge to ensure you have the optimal recovery from your recent injury orsurgery. Follow-up care is a zayas part of your treatment and safety. Be sure to make and go to all appointments, and call your doctor if you are having problems. If you do not already have a follow-up appointment made, call Dr. Negrete office in the next 1-3 days to make follow up appointment for [] weeks at [phone]. It is also a good idea to know your test results and keep a list of the medicines you take. Medications will be prescribed for you at your provider's discretion. These medications are to be used as instructed; if they are taken more often that prescribed they will not be refilled early and in most cases will not be refilled at all. > When a refill is needed,you should contact kip angulo 2-3 business days before your prescription runs out. Medications will NOT be refilled by fire suppression captain providers after hours! > Many pain medications contain Tylenol (Acetaminophen). Do not consume more than 4,000 mg of Tylenol per day in total with any combination ofmedications. > Pain medications can cause constipation. Please use an over the cou nter stool softener as directed, while taking pain medications. Consulty our local pharmacist with questions or recommendations on stool softeners. If constipation persists, contact our office or your primary care provider. > While under our care,you are not to receive pain medications or other controlled substances from any other provider unless our office is notified and approves. Any attempts to do so will result in refusal to prescribe any further pain medications and possible dismissal from our practice. ? Your wound and/or dressing should remain clean and dry for 2 days after surgery. On postoperative day 2 (48 hours after your surgery) the dressing (if present) should be removed and it is okay to shower and get the incision wet. Pad dry afterwards. No further dressing should be required from that point on. Do not put any creams or ointments on theincision > It is normal for there to be a small amount of discharge (bloody or blood tinged) present from a surgical wound for the first 1-3days. > The wound should be examined twice a day for signs of infection. Mild redness or bruising is to be expected but indications that an infection maybe starting would include; An increase in redness, swelling, or discharge, a foul odor present around the incision, and/or a fever greater than 101 ?F ? Showering is permitted, however we ask that you do not take a bath, sit in a whirlpool / Jacuzzi, or go swimming for 1 month. For only the first 2 days after surgery, lt wilt be necessary for you to cover your wound/dressing with plastic and tape to keep it dry. ? Walking is essential for the healing process after surgery. We would like you to slowly advance your walking. This should be done on relatively flat clear ground (inside or out) or can be done on a treadmill. Remember this goal does not have to happen all at once, slowly increase your distance and duration. This can be broken into more more than one walk per day as tolerated. Patients who walk as directed after surgery rarely require Physical Therapy. In the unlikely event this issue arises your provider will direct hospital staff to make the appropriate arrangements. ? No lifting over 5 pounds {a gallon of milk) or bending/twisting until further notice. Each of these activities places an unnecessary amount of stress onto the body and can impede the delicate healing process. > Instead of bending at the waist, keep your back straight and bend at the knees. > Instead of twisting your torso, keep your back straight and turn your entire body with your feet. ? You may sleep in any position which makes you comfortable. Many patients find comfort sleeping in a reclining chair. It is not abnormal to have difficulty sleeping for the first several weeks following your surgery. We recommend trying Benadry! or Tylenol PM as directed to help with your sleeping difficulties. Both medications are over the counter and available without prescription. ? NO SMOKING!!! Smoking dramatically increases the probability of developing postoperative wound infections. ? Common complaints after lumbar and/or thoracic spine surgery include, but are not limited to: numbness and/or tingling in the legs, pain around the incision and surrounding tissues, muscle spasms, or stiffness of the middle to low back. Contact our office if these symptoms persist or if an acute change occurs. ? No driving for the first 3-5days, and not while taking narcotics [] until seen at your follow-up appointment and cleared. There are no restrictions for riding on short trips, however if you take a longer trip, arrangements should be made to make regular stops to get out of the vehicle and stretch . ? Swelling is an unfortunate event that will take place with any surgery and is the primary source of your postoperative discomfort. While walking and regular approved activities helps control inflammation, there are additional steps you can take to minimizeswelling. > Place ice over the surgical site and surrounding tissue for twenty minutes, followed by applying a low/medium heat (heating pad) for an additional twenty minutes every 1-2 hours as needed for painrelief. > You may use of over the counter anti-inflammatory medications (Ibuprofen, Motrin, Aleve, Advil, etc) as directed on the package label. These types of medicines wm significantly reduce the amount of discomfort you experience after surgery from swelling. It should be noted that if you have and allergy to any of these medications, or a history of ulcers or kidney disease you should consult you primary care provider prior to starting these medications. Discharge Attestations Time Spent in Discharge Care*: less than 30 min Quality Metrics Clinical Quality Measures During this hospital stay, did patient experience: None Coding Level of Care Code Acute [facility] note Diagnoses Lumbar stenosis with neurogenic claudication M48.062
[2020-11-27] MEDS: docusate sodium 100 mg Capsule PO (08:04)
[2020-11-27] MEDS: thiamine 100 mg Tablet PO (08:04)
[2020-11-27] MEDS: metoprolol tartrate 50 mg Tablet PO (08:04)
[2020-11-27] MEDS: aspirin 81 mg EC Tablet PO (08:04)
[2020-11-27] MEDS: folic acid 1 mg Tablet PO (08:05)
[2020-11-27] MEDS: sennosides-docusate Tablet 1 TAB PO (08:05)
[2020-11-27] MEDS: clopidogrel 75 mg Tablet PO (08:05)
[2020-11-27] MEDS: pantoprazole DR 40 mg Tablet PO (08:05)
[2020-11-27] MEDS: ziprasidone hcl 40 mg Capsule PO (08:17)
[2020-11-27 11:15] VITALS: BP 139/73; PULSE 68; RESP 18; TEMP 36.6; O2SAT 98
--- NOTE | 2020-11-27 12:06 | PC.NURSE ---
Discharge instructions given to patient, all questions answered. IV removed catheter tip intact. Patient discharged at this time in the care of a friend.
[2020-11-27 12:11] VITALS: BP 139/73; PULSE 68; RESP 18; TEMP 36.6; O2SAT 98
--- NOTE | 2020-11-30 16:44 | PC.RESP ---
Smoking Cessation information sent to patient.
== END 2020-11-27 12:12 | disposition home or self-care (01) ==
LOC: MEDSURG 11-27 05:53
PROVIDERS: Admitting Provider Orthopaedic Surgery; PCP Family Medicine; Visit Provider Orthopaedic Surgery
PROC: (CPT 22612; principal; 2020-11-26 09:55)
DX: M48.061 Spinal stenosis, lumbar region without neurogenic claudication (principal); M43.16 Spondylolisthesis, lumbar region; I10 Essential (primary) hypertension; N40.0 Benign prostatic hyperplasia without lower urinary tract symptoms; F10.10 Alcohol abuse, uncomplicated; Z79.82 Long term (current) use of aspirin; M19.90 Unspecified osteoarthritis, unspecified site; I25.10 Atherosclerotic heart disease of native coronary artery without angina pectoris; Z82.49 Family history of ischemic heart disease and other diseases of the circulatory system; F17.210 Nicotine dependence, cigarettes, uncomplicated
CPT/HCPCS: 20930; 20936; 22558; 22585; 22845; 22853 ×2; 51702; 72100; 76000; 96374; 97161; C1713; C9359; G0378; J0330; J0690; J1100; J1170; J1644; J1885; J2250; J2370; J2405; J2704; J2710; J3490; J7030

== ENCOUNTER 2020-12-09 17:27 | Emergency (ER) | payer MEDICARE, SELFPAY ==
[2020-12-09 17:32] VITALS: BP 139/73; PULSE 102; RESP 18; O2SAT 95
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
[2020-12-09] MEDS: LORazepam 2 mg Tablet PO (18:27)
[2020-12-09] MEDS: ondansetron 4 MG Tablet PO (18:27)
--- NOTE | 2020-12-10 10:37 | DCPLANNER ---
risk management manager had message to schedule a follow up appointment for patient with ortho. risk management manager called the ortho clinic, spoke with Pham, gave clinic patients information. Case manger was told that patients information would be printed and reviewed. Clinic will call patient with appointment information.
--- NOTE | 2020-12-14 14:27 | DCPLANNER ---
Patient had a follow up appointment scheduled for 12.11.[address] Snider - patient did attend appointment.
== END 2020-12-09 18:47 | disposition home or self-care (01) ==
PROVIDERS: Emergency Provider Nurse Practitioner Family; PCP Family Medicine
DX: G89.18 Other acute postprocedural pain (principal); F41.9 Anxiety disorder, unspecified; Z98.890 Other specified postprocedural states; Z79.82 Long term (current) use of aspirin; Z79.02 Long term (current) use of antithrombotics/antiplatelets; I25.10 Atherosclerotic heart disease of native coronary artery without angina pectoris; I10 Essential (primary) hypertension; F17.210 Nicotine dependence, cigarettes, uncomplicated
CPT/HCPCS: 99283; Q0162

== ENCOUNTER → 2021-03-05 08:50 | Outpatient (BNVA) | payer MEDICARE, SELFPAY | PROVIDERS: PCP Family Medicine; Visit Provider Orthopaedic Surgery | DX: Z48.89 Encounter for other specified surgical aftercare (principal) | CPT/HCPCS: 72100 ==